=== PATIENT | male | born 1940 | race Caucasian/White ===

== ENCOUNTER → 2017-11-20 09:03 | Outpatient (CLI) | payer OTHER, SELFPAY ==
[2017-11-20 12:03] LABS: Alanine Aminotransferase 32 IU/L (21-72); Albumin 4.3 g/dL (3.5-5.0); Albumin Globulin Ratio 1.9 (1.0-2.8); Alkaline Phosphatase 34 U/L (38-126); Aspartate Aminotransferase 23 IU/L (17-59); BUN Creatinine Ratio 22.7 (6-22); Bilirubin Total 0.8 mg/dL (0.2-1.3); Cholesterol 117 mg/dL (140-199); Estimated Glomerular Filt Rate > 60.0 mL/min (>60); Globulin 2.3 g/dL (1.7-4.1); Glucose 89 mg/dL (80-110); HDL Cholesterol 52 mg/dL (40-60); HEMOLYSIS < 15 (0-50); LDL Cholesterol Calculated 47 mg/dL (<100); Potassium 4.4 mmol/L (3.4-5.1); Sodium 138 mmol/L (137-145); Total Protein 6.6 g/dL (6.3-8.2); Triglycerides 88 mg/dL (35-150)
== END ==
PROVIDERS: PCP Family Medicine; Visit Provider Internal Medicine Cardiovascular Disease
DX: I25.5 Ischemic cardiomyopathy (principal); I49.3 Ventricular premature depolarization
CPT/HCPCS: 36415; 80053; 80061

== ENCOUNTER → 2018-07-23 09:58 | Outpatient (CLI) | payer OTHER, SELFPAY ==
[2018-07-23 11:08] LABS: Blood Urea Nitrogen 16 mg/dL (9-20); Carbon Dioxide 27 mmol/L (22-32); Chloride 96 mmol/L (98-107); Glucose 91 mg/dL (80-110); HEMOLYSIS < 15 (0-50); Potassium 4.4 mmol/L (3.4-5.1); Sodium 134 mmol/L (137-145)
[2018-07-23 11:33] LABS: Estimated Glomerular Filt Rate > 60.0 mL/min (>60)
== END ==
PROVIDERS: PCP Family Medicine; Visit Provider Internal Medicine Cardiovascular Disease
DX: I25.5 Ischemic cardiomyopathy (principal); I49.3 Ventricular premature depolarization
CPT/HCPCS: 36415; 80048

== ENCOUNTER 2018-07-23 17:17 | Emergency (ER) | payer OTHER, SELFPAY ==
[2018-07-23 17:25] VITALS: BP 143/81; PULSE 76; RESP 20; TEMP 35.9; O2SAT 97; BMI 23.6
[2018-07-23 18:30] VITALS: BP 129/72; PULSE 69; RESP 15; O2SAT 100
--- NOTE | 2018-07-23 18:32 | PC.NURSE ---
Pt c/o dizziness for 3 days that also accompanied sinus congestion. Pt had a scheduled appointment with pcp today but it was cancelled due to pcp's illness. Pcp's office told pt to go to the ED.
[2018-07-23 19:00] VITALS: BP 114/60; PULSE 71; O2SAT 100
[2018-07-23 19:22] LABS: Add Manual Diff / Slide Review NO; Basophils Percent Auto 0.9 % (0-2); Eosinophils Percent Auto 2.4 % (2-4); Hematocrit 37.7 % (41-53); Hemoglobin 12.7 g/dL (13.5-17.5); Mean Corpuscular HGB Conc 33.8 % (30-36); Mean Corpuscular Hemoglobin 31.9 PG (26-34); Mean Corpuscular Volume 94.5 fL (80-100); Monocytes Percent Auto 12.8 % (3-14); Neutrophils Absolute Auto 5400 /uL (1500-7000); Neutrophils Percent Auto 59.9 % (50-75); Platelet Count 136 X10^3/uL (150-400); Red Blood Cell Count 3.99 X10^6/uL (4.5-5.9); Red Cell Distribution Width 12.7 % (11.6-14.8); White Blood Cell Count 8.9 X10^3/uL (4.5-11.0)
[2018-07-23 19:35] LABS: BUN Creatinine Ratio 20.9 (6-22); Blood Urea Nitrogen 23 mg/dL (9-20); Calcium 8.7 mg/dL (8.4-10.2); Carbon Dioxide 23 mmol/L (22-32); Chloride 97 mmol/L (98-107); Estimated Glomerular Filt Rate > 60.0 mL/min (>60); Glucose 93 mg/dL (80-110); HEMOLYSIS 16 (0-50); Sodium 133 mmol/L (137-145)
[2018-07-23 19:48] LABS: Troponin I < 0.012 ng/mL (0.01-0.034)
[2018-07-23] MEDS: SODIUM CHLORIDE 0.9% 1,000 ML 1000 ML IV (21:16)
[2018-07-23 22:08] VITALS: BP 135/71; PULSE 68; RESP 18; O2SAT 100
[2018-07-23 22:09] VITALS: BP 126/64; BP 129/74; BP 131/68; PULSE 69; PULSE 73; PULSE 80
--- NOTE | 2018-07-24 01:40 | ED_ITS ---
HPI - Dizziness General Chief Complaint: Dizziness Stated Complaint: DIZZY, CHF, SINUS ISSUES Time Seen by Provider: 07/23/18 18:21 Source: patient and family Mode of arrival: ambulatory Limitations: no limitations History of Present Illness HPI Narrative: 77-year-old male, nonsmoker with history of hypertension presents with his and a chief complaint of dizziness over the past day or so. He attempted to see his primary care provider whom was out sick today and his nursing staff sent the patient here for evaluation. He denies any new medications or change in diet. He denies any nausea, vomiting or diarrhea. He states his dizziness is worse upon standing and improves with rest. He denies chest pain or shortness of breath. He does have a history of 2 coronary stents and wants to be sure this is not a cardiac problem MD complaint: dizziness and lightheadedness Onset (ago): hour(s) Timing: gradual onset Description: lightheadedness History of similar episodes: No History of trauma: No Severity: mild Relieving factors: remaining still Exacerbating factors: movement and position Associated symptoms: denies other symptoms Related Data Home Medications Medication Instructions Recorded Confirmed ASPIRIN (Aspirin EC) 81 mg PO Q DAY #0 12/11/10 Previous Rx's Medication Instructions Recorded lisinopril 5 mg PO QDAY #90 tab 07/02/16 spironolactone [Aldactone] 12.5 mg PO QDAY #45 tab 08/09/16 simvastatin [Zocor] 20 mg PO HS #90 tab 12/16/16 carvedilol 6.25 mg tablet 6.25 mg PO BID #12 tab 05/21/18 fluoxetine 20 mg PO QDAY #90 tab 07/15/18 Allergies Allergy/AdvReac Type Severity Reaction Status Date / Time No Known Drug Allergies Allergy Verified 07/23/18 17:29 Review of Systems Constitutional Denies chills, Denies fever(s), Denies lethargy and Denies weakness Eyes Denies change in vision, Denies eye discharge, Denies irritation and Denies loss of vision ENT Ears, Nose, Mouth, and Throat: Denies change in voice, Reports vertigo, Reports dizziness, Denies neck pain and Denies sore throat Cardiovascular Denies chest pain, Denies irregular heart rhythm, Denies lightheadedness, Denies palpitations, Denies dyspnea, Denies dyspnea on exertion and Denies orthopnea Respiratory Denies cough, Denies dyspnea, Denies dyspnea on exertion and Denies wheezing Gastrointestinal Gastrointestinal: Denies abdominal pain, Denies change in bowel habits, Denies diarrhea, Denies nausea and Denies vomiting Genitourinary Denies hematuria, Denies flank pain, Denies urinary incontinence and Denies urinary urgency Musculoskeletal Denies neck pain Integumentary/Breasts Denies pruritus, Denies erythema, Denies rash and Denies wounds Neurologic Denies confusion, Reports vertigo, Reports dizziness, Denies loss of vision and Denies weakness Psychiatric Denies anxiety, Denies confusion, Denies depression, Denies homicidal ideation and Denies suicidal ideation Endocrine Denies palpitations Hematologic/Lymphatic Denies easy bruising Allergic/Immunologic Denies wheezing [facility] Surgical History History of cataract removal with insertion of prosthetic lens (02/20/16) History of cataract removal with insertion of prosthetic lens (03/05/16) History of knee replacement History of tonsillectomy Status post arthroscopy Exam Narrative Exam Narrative: GENERAL: This is a well-nourished, well-developed patient, in mild distress. HEAD: Atraumatic. Normocephalic. No temporal or scalp tenderness. EYES: Pupils equal round and reactive. Extraocular motions intact. No scleral icterus. No injection or drainage. ENT: Dry membraines. Nose without bleeding, purulent drainage or septal hematoma. Throat without erythema, tonsillar hypertrophy or exudate. Uvula midline. Airway patent. NECK: Trachea midline. No JVD or lymphadenopathy. Supple, nontender, no meningeal signs. CARDIOVASCULAR: Regular rate and rhythm without murmurs, gallops, or rubs. RESPIRATORY: Clear to auscultation. Breath sounds equal bilaterally. No wheezes , rales, or rhonchi. GASTROINTESTINAL: Abdomen soft, non-tender, nondistended. No hepato-splenomegaly , or palpable masses. No guarding. EXTREMITIES: No clubbing, cyanosis, or edema. No joint tenderness, effusion, or edema noted. BACK: Nontender without deformity or crepitance. No flank tenderness. NEURO: AOx3. SKIN: No rash or erythema. Initial Vital Signs Initial Vital Signs: Vital Signs Temperature 96.7 F L 07/23/18 17:25 Pulse Rate 76 07/23/18 17:25 Respiratory Rate 20 07/23/18 17:25 Blood Pressure 143/81 H 07/23/18 17:25 Pulse Oximetry 97 07/23/18 17:25 Course Orders Ordered: ED Orders 07/23/18 19:15 Basic Metabolic Panel Stat Complete Blood Count AUTO DIFF Stat Troponin I Stat Discontinued Medications Sodium Chloride (Normal Saline 0.9%) 1,000 mls @ 1,000 mls/hr IV BOLUS ONE Stop: 07/23/18 22:04 Last Infusion: 07/23/18 22:17 Dose: 0 mls/hr Admin: 07/23/18 21:16 Dose: 1,000 mls/hr Vital Signs - 8 hr 07/23/18 18:30 07/23/18 19:00 07/23/18 22:08 Pulse Rate 69 71 68 Pulse Rate [Orthostatic Lying] Pulse Rate [Orthostatic Sitting] Pulse Rate [Orthostatic Standing] Respiratory Rate 15 18 Blood Pressure [Orthostatic Lying] Blood Pressure [Orthostatic Sitting] Blood Pressure [Orthostatic Standing] Blood Pressure [Right Arm] 129/72 114/60 135/71 Pulse Oximetry 100 100 100 07/23/18 22:09 Pulse Rate Pulse Rate [Orthostatic Lying] 69 Pulse Rate [Orthostatic Sitting] 80 Pulse Rate [Orthostatic Standing] 73 Respiratory Rate Blood Pressure [Orthostatic Lying] 131/68 Blood Pressure [Orthostatic Sitting] 129/74 Blood Pressure [Orthostatic Standing] 126/64 Blood Pressure [Right Arm] Pulse Oximetry MDM - Dizziness Lab Data Result diagrams: 07/23/18 19:15 07/23/18 19:15 Lab Results 07/23/18 07/23/18 Range/Units 19:15 19:15 WBC 8.9 (4.5-11.0) X10^3/uL RBC 3.99 L (4.5-5.9) X10^6/uL Hgb 12.7 L (13.5-17.5) g/dL Hct 37.7 L (41-53) % MCV 94.5 (80-100) fL MCH 31.9 (26-34) PG MCHC 33.8 (30-36) % RDW 12.7 (11.6-14.8) % Plt Count 136 L (150-400) X10^3/uL Neut % (Auto) 59.9 (50-75) % Lymph % (Auto) 24.0 L (25-40) % [place] % (Auto) 12.8 (3-14) % Eos % (Auto) 2.4 (2-4) % Baso % (Auto) 0.9 (0-2) % Neut # (Auto) 5400 (8229-1849) /uL Sodium 133 L (137-145) mmol/L Potassium 4.0 (3.4-5.1) mmol/L Chloride 97 L (98-107) mmol/L Carbon Dioxide 23 (22-32) mmol/L BUN 23 H (9-20) mg/dL Creatinine 1.10 (0.66-1.25) mg/dL Estimated GFR > 60.0 (>60) mL/min BUN/Creatinine Ratio 20.9 (6-22) Glucose 93 (80-110) mg/dL Calcium 8.7 (8.4-10.2) mg/dL Troponin I < 0.012 (0.01-0.034) ng/mL Discharge Plan Departure Patient Disposition: Home Clinical Impression: Acute dehydration, Dizziness Discharge Date/Time: 07/23/18 22:37 Interventions: ED Discharge Assessment Last Done: 07/23/18 22:37 Instructions: DI for Dehydration -- Adult Activity Restrictions/Additional Instructions: 1. Drink plenty of fluids with frequent small sips. 2. For the next 24 hours a clear liquid diet is advised. After that please employ a brat diet which would include bananas, rice, apples, toast. 3. Please take medications as directed. 4. Please follow-up with your doctor in the next 1-2 days. Call the office for an appointment. 5. Please return to the emergency Department for any worsening or persistent symptoms, such as increasing pain or fever. Prescriptions: No Action ASPIRIN (Aspirin EC) 81 mg PO Q DAY Qty: 0 RF: 0 lisinopril 5 MG tablet 5 mg PO QDAY Qty: 90 RF: 3 spironolactone [Aldactone] 25 MG tablet 12.5 mg PO QDAY Qty: 45 RF: 0 simvastatin [Zocor] 40 MG tablet 20 mg PO HS Qty: 90 RF: 3 carvedilol [Coreg] 6.25 mg tablet 6.25 mg PO BID Qty: 12 RF: 0 fluoxetine 20 mg tablet 20 mg PO QDAY Qty: 90 RF: 0 Referrals: Brandyn Conklin MD [Primary Care Provider] -
== END 2018-07-23 22:37 | disposition home or self-care (01) ==
PROVIDERS: Emergency Provider Emergency Medicine; Family Provider Family Medicine; PCP Family Medicine
DX: E86.0 Dehydration (principal); R42 Dizziness and giddiness
CPT/HCPCS: 36591; 80048; 84484; 85025; 93005; 96360; 99283; 99284

== ENCOUNTER → 2018-08-19 08:36 | Outpatient (CLI) | payer OTHER, SELFPAY ==
[2018-08-19 10:00] LABS: BUN Creatinine Ratio 23.6 (6-22); Blood Urea Nitrogen 26 mg/dL (9-20); Calcium 8.7 mg/dL (8.4-10.2); Carbon Dioxide 25 mmol/L (22-32); Chloride 97 mmol/L (98-107); Estimated Glomerular Filt Rate > 60.0 mL/min (>60); Glucose 91 mg/dL (80-110); HEMOLYSIS < 15 (0-50); Potassium 4.6 mmol/L (3.4-5.1); Sodium 132 mmol/L (137-145)
[2018-08-21 07:58] LABS: Osmolality, Serum 285 mosm/kg (260-310)
== END ==
PROVIDERS: Family Provider Family Medicine; PCP Family Medicine; Visit Provider Internal Medicine Cardiovascular Disease
DX: E87.1 Hypo-osmolality and hyponatremia (principal)
CPT/HCPCS: 36415; 80048; 83930

== ENCOUNTER → 2018-10-19 11:20 | Outpatient (CLI) | payer OTHER, SELFPAY ==
[2018-10-19 12:35] LABS: Blood Urea Nitrogen 22 mg/dL (9-20); Calcium 8.9 mg/dL (8.4-10.2); Carbon Dioxide 25 mmol/L (22-32); Chloride 100 mmol/L (98-107); Estimated Glomerular Filt Rate > 60.0 mL/min (>60); Glucose 93 mg/dL (80-110); HEMOLYSIS 124 (0-50); Potassium 4.8 mmol/L (3.4-5.1); Sodium 135 mmol/L (137-145)
== END ==
PROVIDERS: Family Provider Family Medicine; PCP Family Medicine; Visit Provider Internal Medicine Cardiovascular Disease
DX: I10 Essential (primary) hypertension (principal); E87.1 Hypo-osmolality and hyponatremia
CPT/HCPCS: 36415; 80048

== ENCOUNTER → 2019-07-23 13:09 | Outpatient (CLI) | payer MEDICARE, SELFPAY ==
--- NOTE | 2019-07-23 13:12 | DI.MRI.S_ITS ---
PROCEDURE: MR HEAD/BRAIN WO/W CON INDICATIONS: memory loss TECHNIQUE: Noncontrast axial T1 spin echo, axial T2 fast spin echo, sagittal and axial FLAIR, coronal T2 fast spin echo, axial gradient echo, axial diffusion and ADC through the brain. After the administration of contrast, axial and coronal T1 spin echo with fat saturation through the brain. COMPARISON: None. FINDINGS: Image quality: Excellent. CSF spaces: Basal cisterns are patent. No extra-axial fluid collections. Ventricles are normal in size and shape. Brain: No midline shift. No intracranial bleeds or masses. No abnormal intracranial enhancement. There is cerebral volume loss for age. There is periventricular white matter chronic small vessel ischemic change. The brainstem appears normal. Diffusion-weighted images demonstrate no acute ischemic insults. No chronic ischemic insults. Normal intravascular flow voids are present. Skull and face: Calvarial marrow is normal in signal. Orbits appear normal. Sinuses: Mild bilateral maxillary sinus mucosal thickening is present. Sinuses and mastoids otherwise appear clear. IMPRESSION: 1. Mild volume loss and minimal small vessel ischemic disease. 2. No acute process. No recent infarct. Dictated by: Sung Rice M.D. on 07/23/2019 at 14:18 Approved by: Sung Rice M.D. on 07/23/2019 at 14:20
== END ==
PROVIDERS: PCP Family Medicine; Visit Provider Family Medicine
DX: R41.3 Other amnesia (principal)
CPT/HCPCS: 70553; A9579

== ENCOUNTER → 2019-07-26 08:35 | Outpatient (CLI) | payer MEDICARE, SELFPAY ==
[2019-07-26 09:45] LABS: Add Manual Diff / Slide Review NO; Basophils Absolute Auto 100 /uL (0-100); Basophils Percent Auto 0.9 % (0-2); Eosinophils Absolute Auto 200 /uL (0-450); Eosinophils Percent Auto 2.9 % (2-4); Hematocrit 41.6 % (41-53); Lymphocytes Absolute Auto 1900 /uL (1100-4500); Lymphocytes Percent Auto 33.8 % (25-40); Mean Corpuscular HGB Conc 33.6 % (30-36); Mean Corpuscular Hemoglobin 32.2 PG (26-34); Mean Corpuscular Volume 96.1 fL (80-100); Monocytes Absolute Auto 600 /uL (0-900); Monocytes Percent Auto 10.3 % (3-14); Neutrophils Absolute Auto 2900 /uL (1500-7000); Neutrophils Percent Auto 52.1 % (50-75); Platelet Count 164 X10^3/uL (150-400); Red Blood Cell Count 4.33 X10^6/uL (4.5-5.9); Red Cell Distribution Width 12.8 % (11.6-14.8); White Blood Cell Count 5.6 X10^3/uL (4.5-11.0)
[2019-07-26 10:05] LABS: Alanine Aminotransferase 15 IU/L (<50); Albumin 4.4 g/dL (3.5-5.0); Albumin Globulin Ratio 1.7 (1.0-2.8); Alkaline Phosphatase 42 U/L (38-126); Aspartate Aminotransferase 26 IU/L (17-59); BUN Creatinine Ratio 20.9 (6-22); Bilirubin Total 0.6 mg/dL (0.2-1.3); Blood Urea Nitrogen 23 mg/dL (9-20); Carbon Dioxide 27 mmol/L (22-32); Chloride 101 mmol/L (98-107); Cholesterol 140 mg/dL (140-199); Estimated Glomerular Filt Rate > 60.0 mL/min (>60); Globulin 2.6 g/dL (1.7-4.1); Glucose 89 mg/dL (80-110); HDL Cholesterol 56 mg/dL (40-60); HEMOLYSIS < 15 (0-50); LDL Cholesterol Calculated 70 mg/dL (<100); Potassium 4.6 mmol/L (3.4-5.1); Sodium 136 mmol/L (137-145); Triglycerides 71 mg/dL (35-150)
[2019-07-26 10:36] LABS: TSH w/ Reflex to FT4 2.83 uIU/mL (0.47-4.68)
[2019-07-26 10:56] LABS: Vitamin B12 270 pg/mL (239-931)
== END ==
PROVIDERS: PCP Family Medicine; Visit Provider Family Medicine
DX: R41.3 Other amnesia (principal)
CPT/HCPCS: 36415; 80053; 80061; 82607; 84443; 85025

== ENCOUNTER → 2020-06-07 08:54 | Outpatient (CLI) | payer MEDICARE, SELFPAY ==
[2020-06-07 10:42] LABS: BUN Creatinine Ratio 20.4 (6-22); Blood Urea Nitrogen 23 mg/dL (9-20); Calcium 8.9 mg/dL (8.4-10.2); Carbon Dioxide 27 mmol/L (22-32); Chloride 100 mmol/L (98-107); Cholesterol 107 mg/dL (140-199); Estimated Glomerular Filt Rate > 60.0 mL/min (>60); Glucose 92 mg/dL (80-110); HDL Cholesterol 49 mg/dL (40-60); HEMOLYSIS < 15 (0-50); LDL Cholesterol Calculated 38 mg/dL (<100); Potassium 4.7 mmol/L (3.4-5.1); Sodium 133 mmol/L (137-145); Triglycerides 99 mg/dL (35-150)
== END ==
PROVIDERS: PCP Family Medicine; Referring Provider Internal Medicine Cardiovascular Disease; Visit Provider Internal Medicine Cardiovascular Disease
DX: I10 Essential (primary) hypertension (principal)
CPT/HCPCS: 36415; 80048; 80061

== ENCOUNTER → 2020-09-14 12:59 | Outpatient (CLI) | payer MEDICARE, SELFPAY ==
[2020-09-14 14:08] LABS: Add Manual Diff / Slide Review NO; Basophils Absolute Auto 0 /uL (0-100); Basophils Percent Auto 0.8 % (0-2); Eosinophils Absolute Auto 100 /uL (0-450); Eosinophils Percent Auto 1.3 % (2-4); Hematocrit 38.6 % (41-53); Hemoglobin 12.8 g/dL (13.5-17.5); Lymphocytes Absolute Auto 1400 /uL (1100-4500); Mean Corpuscular HGB Conc 33.2 % (30-36); Mean Corpuscular Volume 96.1 fL (80-100); Monocytes Absolute Auto 600 /uL (0-900); Monocytes Percent Auto 11.2 % (3-14); Neutrophils Absolute Auto 3600 /uL (1500-7000); Neutrophils Percent Auto 62.7 % (50-75); Platelet Count 151 X10^3/uL (150-400); Red Blood Cell Count 4.02 X10^6/uL (4.5-5.9); Red Cell Distribution Width 13.2 % (11.6-14.8); White Blood Cell Count 5.7 X10^3/uL (4.5-11.0)
[2020-09-14 14:30] LABS: Erythrocyte Sedimentation Rate 6 MM/HR (0-15)
[2020-09-14 14:34] LABS: Albumin 4.1 g/dL (3.5-5.0); Albumin Globulin Ratio 1.6 (1.0-2.8); Alkaline Phosphatase 418 U/L (38-126); Amylase 65 U/L (30-110); Aspartate Aminotransferase 711 IU/L (17-59); BUN Creatinine Ratio 18.2 (6-22); Bilirubin Conjugated 4.1 md/dL (0.0-0.3); Bilirubin Total 7.6 mg/dL (0.2-1.3); Bilirubin Unconjugated 1.7 mg/dL (0.0-1.1); Blood Urea Nitrogen 20 mg/dL (9-20); Calcium 8.8 mg/dL (8.4-10.2); Carbon Dioxide 24 mmol/L (22-32); Chloride 98 mmol/L (98-107); Estimated Glomerular Filt Rate > 60.0 mL/min (>60); Globulin 2.5 g/dL (1.7-4.1); Glucose 118 mg/dL (80-110); Lipase 599 U/L (23-300); Potassium 5.1 mmol/L (3.4-5.1); Sodium 129 mmol/L (137-145); Total Protein 6.6 g/dL (6.3-8.2)
[2020-09-14 14:40] LABS: Alanine Aminotransferase 840 IU/L (<50); C-Reactive Protein Quant < 0.5 mg/dL (<1.0); HEMOLYSIS 62 (0-50)
[2020-09-14 14:57] LABS: Appearance Urine UA CLOUDY; Bilirubin Urine UA 3+ (NEGATIVE); Color Urine UA ORANGE; Glucose Urine UA TRACE g/dL (Negative); Ketones Urine UA NEGATIVE (NEGATIVE); Leukocyte Esterase Urine UA 3+ (NEGATIVE); Nitrite Urine UA NEGATIVE (Negative); Occult Blood Urine UA 3+ (Negative); Protein Urine UA 1+ (Negative); Specific Gravity Urine UA 1.015 (1.000-1.035)
[2020-09-14 15:03] LABS: Bacteria Urine None Seen
[2020-09-14 15:05] LABS: Culture Indicated Urine Specimen Cultured; RBC Urine 10-30/HPF (0-5/HPF); WBC Urine 10-30/HPF (0-5/HPF)
[2020-09-14 15:07] LABS: Ictotest Urine Positive (Negative)
== END ==
PROVIDERS: PCP Family Medicine; Referring Provider Family Medicine; Visit Provider Family Medicine
DX: R17 Unspecified jaundice (principal); R53.83 Other fatigue
CPT/HCPCS: 36415; 80048; 80076; 81003; 81015; 82150; 83690; 85025; 85651; 86140; 87077; 87086; 87186

== ENCOUNTER → 2020-09-15 11:34 | Outpatient (CLI) | payer MEDICARE, SELFPAY ==
--- NOTE | 2020-09-15 12:30 | DI.CT.S_ITS ---
PROCEDURE: CT ABDOMEN PELVIS W CON INDICATIONS: Elevated LFT's TECHNIQUE: After the administration of oral and intravenous contrast, 5 mm thick sections acquired from the diaphragms to the symphysis. 5 mm thick coronal and sagittal reformats were performed. For radiation dose reduction, the following was used: automated exposure control, adjustment of mA and/or kV according to patient size. COMPARISON: [facility], CT, CT-IVP, 06/05/2010, 8:41. FINDINGS: Image quality: Excellent. ABDOMEN: Lung bases: Mild bibasilar scarring/atelectasis is seen. Heart size is normal. Solid organs: Liver is normal in size . No discrete hepatic lesion is noted. Gallbladder is markedly distended. No calcified gallstone is seen. There is mild to moderate intrahepatic biliary ductal dilatation. Marked dilatation of common bile duct is seen measures up to 1.3 cm in diameter distally. No calcified common bile duct stone is seen. Pancreatic duct is normal in size. Pancreas enhances normally. No definite pancreatic head mass is identified. Spleen is normal in size and enhancement. No adrenal nodules. Kidneys are normal in size and enhancement, without hydronephrosis. 2.4 cm exophytic cyst in posterior cortex of midpole right kidney is seen. Peritoneum and bowel: Stomach, small bowel, and colon loops are normal in caliber and wall thickness. No free fluid or air. There is a small hiatal hernia. Mild fecal stasis throughout the colon is seen. Sigmoid diverticulosis is seen, no CT evidence of acute diverticulitis. No abscess collection. Nodes and vessels: No retroperitoneal or mesenteric adenopathy. Aorta and inferior vena cava are normal in caliber. Miscellaneous: No ventral hernias. PELVIS: Genitourinary: There is diffuse bladder wall thickening, no definite discrete bladder wall mass is seen. Miscellaneous: No inguinal hernias or adenopathy. Bones: No suspicious bony lesions. No vertebral body compression fractures. Degenerative endplate changes throughout lower thoracic and lumbar spine is seen. IMPRESSION: 1. [id number] intrahepatic biliary ductal dilatation and marked dilatation of distal common bile duct measures up to 1.3 cm in diameter. Markedly distended gallbladder. No calcified gallstone or common bile duct stone is seen. ERCP or MRCP can be done for further evaluation of this area. 2. Pancreatic duct is normal in size. No discrete pancreatic lesion is identified. 3. Right renal cyst as above. No obstructing renal stone or hydronephrosis. Diffuse bladder wall thickening, no discrete bladder wall mass, and may represent cystitis versus chronic outlet obstruction. 4. No bowel obstruction. No abnormal bowel wall thickening. No free fluid or free air. Sigmoid diverticulosis without evidence of acute diverticulitis. 5. Bibasilar dependent atelectasis/scarring. Dictated by: Primo Coburn M.D. on 09/15/2020 at 13:17 Approved by: Primo Coburn M.D. on 09/15/2020 at 13:25
== END ==
PROVIDERS: PCP Family Medicine; Referring Provider Family Medicine; Visit Provider Family Medicine
DX: R79.89 Other specified abnormal findings of blood chemistry (principal); K83.8 Other specified diseases of biliary tract; K57.30 Diverticulosis of large intestine without perforation or abscess without bleeding; N28.1 Cyst of kidney, acquired
CPT/HCPCS: 74177; Q9967

== ENCOUNTER 2020-09-21 07:34 | Emergency (ER) | payer MEDICARE, SELFPAY ==
[2020-09-21] VITALS (9 sets, daily range): BP systolic 141–159; BP diastolic 68–72; PULSE 55–62; RESP 15–21; TEMP 36; O2SAT 98–100; BMI 22.9
--- NOTE | 2020-09-21 07:59 | ED_ITS ---
HPI - Male Genitourinary General Chief complaint: Urogenital-Male Stated complaint: procedure on friday, complications Time Seen by Provider: 09/21/20 07:41 Source: patient Mode of arrival: Ambulatory Limitations: no limitations History of Present Illness HPI Narrative: 79-year-old male former smoker with history of coronary artery disease, hypertension, CHF, recent gallbladder procedure presents with his and multiple complaints. On Friday he was at an outside facility and had a procedure for what he refers to as a blocked common bile duct. He was discharged on Friday and had been doing well per his own admission. He received his COVID vaccination yesterday and went to bed in his normal state of health. He woke up and upon getting out of bed became lightheaded and then fell to the ground, likely passing out briefly. He denies any head neck or back pain and now feels largely at his baseline but his largest complaint is inability to urinate over this morning Related Data Home Medications Medication Instructions Recorded Confirmed ASPIRIN (Aspirin EC) 81 mg PO Q DAY #0 12/11/10 09/18/20 atorvastatin 40 mg tablet 40 mg PO DAILY 07/28/18 09/18/20 glucosamine sulfate 500 mg tablet 500 mg PO BID 07/28/18 09/18/20 spironolactone 25 mg tablet 12.5 mg PO DAILY tab 07/19/19 09/18/20 pantoprazole 40 mg tablet,delayed 40 mg PO BID tab 09/20/20 09/20/20 release Previous Rx's Medication Instructions Recorded fluoxetine 20 mg tablet 20 mg PO QDAY #90 tab 10/06/19 clopidogrel 75 mg tablet See Rx Instructions .ROUTE 05/01/20 .COMPLEX #90 tablet carvedilol 6.25 mg tablet 6.25 mg PO BID #60 tab 08/04/20 cephalexin 500 mg PO BID 5 Days #10 cap 09/21/20 Allergies Allergy/AdvReac Type Severity Reaction Status Date / Time No Known Drug Allergies Allergy Verified 09/21/20 07:47 Review of Systems Constitutional Constitutional: Denies chills, Denies fatigue, Denies fever(s), Denies frequent falls, Denies lethargy and Denies weakness Eyes Eyes: Denies change in vision, Denies eye discharge, Denies irritation and Denies loss of vision ENT Ears, Nose, Mouth, and Throat: Denies change in voice, Denies dizziness, Denies neck pain, Denies sore throat and Denies throat swelling Cardiovascular Cardiovascular: Denies chest pain, Reports syncope, Denies irregular heart rhythm, Denies lightheadedness, Denies palpitations, Denies dyspnea, Denies dyspnea on exertion and Denies orthopnea Respiratory Respiratory: Denies cough, Denies dyspnea, Denies dyspnea on exertion and Denies wheezing Gastrointestinal Gastrointestinal: Denies abdominal pain, Denies change in bowel habits, Denies diarrhea, Denies nausea and Denies vomiting Genitourinary Genitourinary: Reports hematuria and Reports difficulty urinating Genitourinary: Reports hematuria Musculoskeletal Musculoskeletal: Denies neck pain and Denies numbness Integumentary/Breasts Skin/Breast: Denies pruritus, Denies erythema, Denies rash and Denies wounds Neurologic Neurologic: Denies behavioral changes, Denies confusion, Denies dizziness, Reports syncope, Denies frequent falls, Denies loss of vision, Denies numbness and Denies weakness Psychiatric Psychiatric: Denies anxiety, Denies behavioral changes, Denies confusion, Denies depression, Denies homicidal ideation and Denies suicidal ideation Endocrine Endocrine: Denies fatigue, Denies flushing and Denies palpitations Hematologic/Lymphatic Hematologic/Lymphatic: Denies easy bruising Allergic/Immunologic Allergic/Immunologic: Denies urticaria, Denies throat swelling and Denies wheezing Patient History Surgical History History of cataract removal with insertion of prosthetic lens (02/20/16) History of cataract removal with insertion of prosthetic lens (03/05/16) History of knee replacement History of tonsillectomy Status post arthroscopy Stented coronary artery Social History marital status: number of children: 2 household members: spouse lives independently: Yes caregiver/support person: No housing: house pets and animals: Yes education level: college occupational status: previously employed current occupational exposures/hazards: No 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 Well-nourished, well-developed patient, in mild distress. Walked in his own power. GCS 15 HEAD: Atraumatic. Normocephalic. EYES: Pupils equal round and reactive. Extraocular motions intact. No scleral icterus. No injection or drainage. ENT: Nose without bleeding, purulent drainage. Throat without erythema, ton sillar hypertrophy or exudate. Airway patent. NECK: Trachea midline. Non tender CARDIOVASCULAR: Regular rate and rhythm without murmurs, gallops, or rubs. RESPIRATORY: Clear to auscultation. Breath sounds equal bilaterally. No wheezes, rales, or rhonchi. GASTROINTESTINAL: Abdomen soft, suprapubic tenderness, nondistended. EXTREMITIES: No edema or joint tenderness. BACK: Nontender without deformity or crepitance. No flank tenderness. NEURO: AOx3. SKIN: No rash or erythema of visible areas. Mild jaundice Initial Vital Signs Initial Vital Signs: Vital Signs Temperature 96.8 F L 09/21/20 07:43 Pulse Rate 62 09/21/20 07:43 Respiratory Rate 16 09/21/20 07:43 Blood Pressure 159/72 H 09/21/20 07:43 Pulse Oximetry 98 09/21/20 07:43 Course Course Course Narrative: Bedside bladder scan notes over 400 cc of urine. Holbrook catheter placed and patient experiences complete resolution of symptoms. Orders Ordered: Discontinued Medications Lidocaine HCl (Lidocaine 2% (Urojet) 5 Ml Gel) 5 ml TOP NOW ONE Stop: 09/21/20 08:26 Last Admin: 09/21/20 08:37 Dose: 5 ml [facility]ed [facility] Consult[facility] Consultation #1: Dr. Lee (GI at [facility]) called. We have reviewed labs, presentation, and ultrasound. All labs are significantly improved and patient is feeling quite well. Requests we DC him, remind him to stop his Plavix and will see at scheduled visit next week. Vital Signs Vital signs: Vital Signs - 8 hr 09/21/20 10:30 09/21/20 10:32 09/21/20 11:00 Pulse Rate 58 L 57 L 56 L Respiratory Rate 21 15 Blood Pressure 156/68 H 141/69 H Pulse Oximetry 100 100 100 MDM - Male Genitourinary Lab Data Result diagrams: 09/21/20 07:55 09/21/20 07:55 Labs: Lab Results 03/06/0309/21/20 09/21/20 Range/Units 07:55 07:55 07:55 WBC 6.8 (4.5-11.0) X10^3/uL RBC 3.87 L (4.5-5.9) X10^6/uL Hgb 12.2 L (13.5-17.5) g/dL Hct 36.8 L (41-53) % MCV 95.1 (80-100) fL MCH 31.6 (26-34) PG MCHC 33.2 (30-36) % RDW 13.4 (11.6-14.8) % Plt Count 121 L (150-400) X10^3/uL Neut % (Auto) 60.8 (50-75) % Lymph % (Auto) 24.2 L (25-40) % Bee % (Auto) 11.2 (3-14) % Eos % (Auto) 2.9 (2-4) % Baso % (Auto) 0.9 (0-2) % Neut # (Auto) 4100 (3384-8787) /uL Lymph # (Auto) 1600 (4472-3477) /uL Bee # (Auto) 800 (0-900) /uL Eos # (Auto) 200 (0-450) /uL Baso # (Auto) 100 (0-100) /uL PT 12.7 (10.1-12.7) SECONDS INR 1.1 (0.9-1.3) Sodium 131 L (137-145) mmol/L Potassium 4.2 (3.4-5.1) mmol/L Chloride 101 (98-107) mmol/L Carbon Dioxide 24 (22-32) mmol/L BUN 23 H (9-20) mg/dL Creatinine 1.12 (0.66-1.25) mg/dL Estimated GFR > 60.0 (>60) mL/min BUN/Creatinine Ratio 20.5 (6-22) Glucose 102 (80-110) mg/dL Lactate (0.7-2.1) mmol/L Calcium 8.9 (8.4-10.2) mg/dL Magnesium 1.8 (1.6-2.3) mg/dL Total Bilirubin 2.5 H (0.2-1.3) mg/dL AST 769 H (17-59) IU/L ALT 935 H (<50) IU/L Alkaline Phosphatase 466 H (38-126) U/L Total Creatine Kinase 198 H (55-170) U/L CK-MB (CK-2) 2.77 H (<2.37) ng/mL CK-MB (CK-2) Rel Index 1.4 L (1.5-5.0) % Troponin I < 0.012 (0.01-0.034) ng/mL NT-Pro-B Natriuret Pep 589 H (<450) pg/mL Total Protein 6.5 (6.3-8.2) g/dL Albumin 3.8 (3.5-5.0) g/dL Globulin 2.7 (1.7-4.1) g/dL Albumin/Globulin Ratio 1.4 (1.0-2.8) Lipase 1265 H D (23-300) U/L Urine Color Urine Appearance Urine pH (4.5-8.0) Ur Specific [place] (1.000-1.035) Urine Protein (Negative) Urine Glucose (UA) (Negative) g/dL Urine Ketones (NEGATIVE) Urine Occult Blood (Negative) Urine Nitrate (Negative) Urine Bilirubin (NEGATIVE) Urine Urobilinogen (0.2) E.U./dL Ur Leukocyte Esterase (NEGATIVE) Urine RBC (0-5/HPF) Urine WBC (0-5/HPF) Urine Bacteria (None) Ur Culture Indicated? 09/21/20 09/21/20 Range/Units 07:55 08:20 WBC (4.5-11.0) X10^3/uL RBC (4.5-5.9) X10^6/uL Hgb (13.5-17.5) g/dL Hct (41-53) % MCV (80-100) fL MCH (26-34) PG MCHC (30-36) % RDW (11.6-14.8) % Plt Count (150-400) X10^3/uL Neut % (Auto) (50-75) % Lymph % (Auto) (25-40) % Bee % (Auto) (3-14) % Eos % (Auto) (2-4) % Baso % (Auto) (0-2) % Neut # (Auto) (4902-5174) /uL Lymph # (Auto) (2859-8869) /uL Bee # (Auto) (0-900) /uL Eos # (Auto) (0-450) /uL Baso # (Auto) (0-100) /uL PT (10.1-12.7) SECONDS INR (0.9-1.3) Sodium (137-145) mmol/L Potassium (3.4-5.1) mmol/L Chloride (98-107) mmol/L Carbon Dioxide (22-32) mmol/L BUN (9-20) mg/dL Creatinine (0.66-1.25) mg/dL Estimated GFR (>60) mL/min BUN/Creatinine Ratio (6-22) Glucose (80-110) mg/dL Lactate 1.0 (0.7-2.1) mmol/L Calcium (8.4-10.2) mg/dL Magnesium (1.6-2.3) mg/dL Total Bilirubin (0.2-1.3) mg/dL AST (17-59) IU/L ALT (<50) IU/L Alkaline Phosphatase (38-126) U/L Total Creatine Kinase (55-170) U/L CK-MB (CK-2) (<2.37) ng/mL CK-MB (CK-2) Rel Index (1.5-5.0) % Troponin I (0.01-0.034) ng/mL NT-Pro-B Natriuret Pep (<450) pg/mL Total Protein (6.3-8.2) g/dL Albumin (3.5-5.0) g/dL Globulin (1.7-4.1) g/dL Albumin/Globulin Ratio (1.0-2.8) Lipase (23-300) U/L Urine Color Brown Urine Appearance Cloudy Urine pH 6.0 (4.5-8.0) Ur Specific [place] 1.015 (1.000-1.035) Urine Protein 2+ H (Negative) Urine Glucose (UA) Negative (Negative) g/dL Urine Ketones Negative (NEGATIVE) Urine Occult Blood 3+ H (Negative) Urine Nitrate Negative (Negative) Urine Bilirubin Negative (NEGATIVE) Urine Urobilinogen 0.2 (0.2) E.U./dL Ur Leukocyte Esterase 2+ H (NEGATIVE) Urine RBC >100/hpf H (0-5/HPF) Urine WBC >100/hpf H (0-5/HPF) Urine Bacteria Many (>30) H (None) Ur Culture Indicated? Specimen cultured Imaging Data US - abdomen: Radiologist's Impression: [address] [id number] ReportSigned Patient: Perry Beckwith WMR#: [id number]: 1940cct:[id number]/Sex: 79 / MDate of Service: 09/21/20Loc: EDAccession Number: [id number] Procedure: US abdomen limited Ordering Provider: Asaf Boss D.O. PROCEDURE: US ABDOMEN LIMITED INDICATIONS: JAUNDICE. RECENT ERCP FOR CBD STONE. TECHNIQUE: Real-time scanning was performed of the abdominal and retroperitoneal organs, with image documentation. COMPARISON: [facility], CT, CT ABDOMEN PELVIS W CON, 09/15/2020, 12:40. FINDINGS: Liver: Liver is normal in size and homogeneous in echotexture. Gallbladder: Gallbladder is mildly enlarged measuring 8.9 x 5.0 x 5.0 cm. Gallbladder wall thickness is normal and there is no pericholecystic fluid. Biliary ducts: Intrahepatic bile ducts do not appear significantly dilated. An internal biliary stent is present. Extrahepatic bile duct caliber measures 4 mm at the common hepatic duct and 9 mm at the common bile duct. Normal is 6-7 mm or less in diameter, or 10 mm or less post-cholecystectomy. Pancreas: Portions of the pancreatic head are within normal limits. The pancreatic body and tail are not well seen. Miscellaneous: No free right upper quadrant fluid. IMPRESSION: Status post biliary stent placement. Mild enlargement of the common bile duct to 9 mm. The gallbladder is also mildly distended. No biliary duct calculus is seen. If there is suspicion for a pancreatic mass, dedicated pancreas protocol MRI or CT may be obtained for further evaluation. Dictated by: Doug Cagle M.D. on 09/21/2020 at 9:22 Approved by: Doug Cagle M.D. on 09/21/2020 at 9:28 MDM Narrative Medical decision making narrative: Patient presents with inability to urinate and hematuria. He has complete resolution of symptoms after placement of a Holbrook catheter and is easily flushed to clear. 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 He does not have fever, pain, vomiting, jaundice is improved. I sure the opinion with his quarry extraction worker that he is finding well for discharge and can follow up next week as planned Discharge Plan Departure Patient Disposition: Home Clinical Impression: Acute urinary retention Hematuria Qualifiers: Hematuria type: gross Qualified Code(s): R31.0 - Gross hematuria Instructions: Blood in Urine, DI for Hematuria, DI for Urinary Retention in Men Activity Restrictions/Additional Instructions: *You have been diagnosed with [urinary retention and hematuria. Your other labs are moving in the right direction and are very reassuring.] *What to do: *Take medications as directed: Antibiotic was sent to [facility]. Don't forget to hold your Plavix as we discussed. *Follow up with your quarry extraction worker as planned next week. Also, I have given you contact information for Urology to follow up with regarding your urinary retention *Return to ER if you should have any new, worsening or concerning symptoms, fever greater than 101 F, abdominal pain, worsening jaundice, other bothersome symptoms Prescriptions: New cephalexin 500 mg capsule 500 mg PO BID 5 Days Qty: 10 RF: 0 No Action spironolactone 25 mg tablet 12.5 mg PO DAILY RF: 0 pantoprazole 40 mg tablet,delayed release (DR/EC) 40 mg PO BID RF: 0 ASPIRIN (Aspirin EC) 81 mg PO Q DAY Qty: 0 RF: 0 fluoxetine 20 mg tablet 20 mg PO QDAY Qty: 90 RF: 3 clopidogrel 75 mg tablet See Rx Instructions .ROUTE .COMPLEX Qty: 90 RF: 3 carvedilol 6.25 mg tablet 6.25 mg PO BID Qty: 60 RF: 6 atorvastatin 40 mg tablet 40 mg PO DAILY RF: 0 glucosamine sulfate [Glucosamine] 500 mg tablet 500 mg PO BID RF: 0 Referrals: Bob Lee MD [Physician] - Brandyn Conklin MD [Primary Care Provider] - Gordon Burleson MD [Physician] -
[2020-09-21 08:07] LABS: Add Manual Diff / Slide Review NO; Basophils Absolute Auto 100 /uL (0-100); Basophils Percent Auto 0.9 % (0-2); Eosinophils Absolute Auto 200 /uL (0-450); Eosinophils Percent Auto 2.9 % (2-4); Hematocrit 36.8 % (41-53); Hemoglobin 12.2 g/dL (13.5-17.5); Lymphocytes Absolute Auto 1600 /uL (1100-4500); Lymphocytes Percent Auto 24.2 % (25-40); Mean Corpuscular HGB Conc 33.2 % (30-36); Mean Corpuscular Hemoglobin 31.6 PG (26-34); Mean Corpuscular Volume 95.1 fL (80-100); Monocytes Absolute Auto 800 /uL (0-900); Monocytes Percent Auto 11.2 % (3-14); Neutrophils Absolute Auto 4100 /uL (1500-7000); Neutrophils Percent Auto 60.8 % (50-75); Platelet Count 121 X10^3/uL (150-400); Red Blood Cell Count 3.87 X10^6/uL (4.5-5.9); Red Cell Distribution Width 13.4 % (11.6-14.8); White Blood Cell Count 6.8 X10^3/uL (4.5-11.0)
[2020-09-21 08:12] LABS: INR 1.1 (0.9-1.3); Prothrombin Time 12.7 SECONDS (10.1-12.7)
[2020-09-21 08:16] LABS: Albumin 3.8 g/dL (3.5-5.0); Albumin Globulin Ratio 1.4 (1.0-2.8); Alkaline Phosphatase 466 U/L (38-126); BUN Creatinine Ratio 20.5 (6-22); Bilirubin Total 2.5 mg/dL (0.2-1.3); Blood Urea Nitrogen 23 mg/dL (9-20); Calcium 8.9 mg/dL (8.4-10.2); Carbon Dioxide 24 mmol/L (22-32); Chloride 101 mmol/L (98-107); Creatine Kinase 198 U/L (55-170); Estimated Glomerular Filt Rate > 60.0 mL/min (>60); Globulin 2.7 g/dL (1.7-4.1); Glucose 102 mg/dL (80-110); Lipase 1265 U/L (23-300); Magnesium 1.8 mg/dL (1.6-2.3); Potassium 4.2 mmol/L (3.4-5.1); Sodium 131 mmol/L (137-145); Total Protein 6.5 g/dL (6.3-8.2)
[2020-09-21 08:23] LABS: Aspartate Aminotransferase 769 IU/L (17-59)
[2020-09-21 08:25] LABS: Alanine Aminotransferase 935 IU/L (<50)
[2020-09-21 08:28] LABS: NT-proBNP (BNP-Adult 18+) 589 pg/mL (<450); Troponin I < 0.012 ng/mL (0.01-0.034)
[2020-09-21 08:32] LABS: CKMB % Relative Index 1.4 % (1.5-5.0); Creatine Kinase MB 2.77 ng/mL (<2.37)
[2020-09-21 08:33] LABS: HEMOLYSIS 56 (0-50)
[2020-09-21 08:35] LABS: Appearance Urine UA CLOUDY; Bilirubin Urine UA NEGATIVE (NEGATIVE); Color Urine UA BROWN; Glucose Urine UA NEGATIVE (Negative); Ketones Urine UA NEGATIVE (NEGATIVE); Leukocyte Esterase Urine UA 2+ (NEGATIVE); Nitrite Urine UA NEGATIVE (Negative); Occult Blood Urine UA 3+ (Negative); Protein Urine UA 2+ (Negative); Specific Gravity Urine UA 1.015 (1.000-1.035); Urobilinogen Urine UA 0.2 E.U./dL (0.2)
[2020-09-21] MEDS: LIDOCAINE 2% (UROJET) 5 ML GEL TOP (08:37)
--- NOTE | 2020-09-21 08:40 | DI.US.S_ITS ---
PROCEDURE: US ABDOMEN LIMITED INDICATIONS: JAUNDICE. RECENT ERCP FOR CBD STONE. TECHNIQUE: Real-time scanning was performed of the abdominal and retroperitoneal organs, with image documentation. COMPARISON: [facility], CT, CT ABDOMEN PELVIS W CON, 09/15/2020, 12:40. FINDINGS: Liver: Liver is normal in size and homogeneous in echotexture. Gallbladder: Gallbladder is mildly enlarged measuring 8.9 x 5.0 x 5.0 cm. Gallbladder wall thickness is normal and there is no pericholecystic fluid. Biliary ducts: Intrahepatic bile ducts do not appear significantly dilated. An internal biliary stent is present. Extrahepatic bile duct caliber measures 4 mm at the common hepatic duct and 9 mm at the common bile duct. Normal is 6-7 mm or less in diameter, or 10 mm or less post-cholecystectomy. Pancreas: Portions of the pancreatic head are within normal limits. The pancreatic body and tail are not well seen. Miscellaneous: No free right upper quadrant fluid. IMPRESSION: Status post biliary stent placement. Mild enlargement of the common bile duct to 9 mm. The gallbladder is also mildly distended. No biliary duct calculus is seen. If there is suspicion for a pancreatic mass, dedicated pancreas protocol MRI or CT may be obtained for further evaluation. Dictated by: Doug Cagle M.D. on 09/21/2020 at 9:22 Approved by: Doug Cagle M.D. on 09/21/2020 at 9:28
[2020-09-21 08:44] LABS: Bacteria Urine Many (>30); Culture Indicated Urine Specimen Cultured; RBC Urine >100/HPF (0-5/HPF); WBC Urine >100/HPF (0-5/HPF)
--- NOTE | 2020-09-21 08:53 | PC.NURSE ---
Continuous 3 way bladder irrigation started at this time.
--- NOTE | 2020-09-21 11:13 | PC.NURSE ---
After continuous bladder irrigation, patient has no retention and urine is still brown in color, but much clearer than earlier.
--- NOTE | 2020-09-21 11:39 | PC.NURSE ---
Leg bag applied and teaching given on switching between leg bag and large urinary catheter bag. Patient given supplies and verbalizes understanding on clean practice.
== END 2020-09-21 11:40 | disposition home or self-care (01) ==
PROVIDERS: Emergency Provider Emergency Medicine; PCP Family Medicine
DX: R33.8 Other retention of urine (principal); R31.9 Hematuria, unspecified; R42 Dizziness and giddiness; R07.9 Chest pain, unspecified
CPT/HCPCS: 36415; 51701; 51798; 76705; 80053; 81001; 82550; 82553; 83605; 83690; 83735; 83880; 84484; 85025; 85610; 87040; 87077; 87086; 87186; 93005; 99284

== ENCOUNTER → 2020-09-25 09:59 | Outpatient (CLI) | payer MEDICARE, SELFPAY ==
[2020-09-25 12:15] LABS: COVID19 -Nasal RAPID Negative (Negative)
== END ==
PROVIDERS: PCP Family Medicine; Visit Provider Physician Assistant
DX: Z20.822 Contact with and (suspected) exposure to COVID-19 (principal)
CPT/HCPCS: 87635

== ENCOUNTER → 2020-10-16 11:53 | Outpatient (CLI) | payer MEDICARE, SELFPAY ==
[2020-10-16 13:03] LABS: COVID19 -Nasal RAPID Negative (Negative)
== END ==
PROVIDERS: PCP Family Medicine; Visit Provider Physician Assistant
DX: Z01.812 Encounter for preprocedural laboratory examination (principal); Z20.822 Contact with and (suspected) exposure to COVID-19
CPT/HCPCS: 87635; C9803

== ENCOUNTER 2020-10-25 03:01 | Inpatient (IN) | payer MEDICARE, SELFPAY ==
[2020-10-25] VITALS (24 sets, daily range): BP systolic 76–162; BP diastolic 49–86; PULSE 52–110; RESP 11–26; TEMP 36.3–36.9; O2SAT 94–99; BMI 21.7; BMI 21.6
--- NOTE | 2020-10-25 03:02 | ED.GENADULT ---
HPI - General Adult General Chief complaint: Weakness Stated complaint: Fall Time Seen by Provider: 10/25/20 03:02 Source: patient, family and EMS Mode of arrival: EMS Limitations: no limitations History of Present Illness HPI narrative: Patient is a 79-year-old male who arrived by EMS for evaluation of weakness. 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 He is scheduled to start chemotherapy sometime in the next week but has not done so up to this point. This was diagnosed after finding that he had elevated bilirubin. He is being followed by [facility] for this. He is currently on antibiotics after he had a biliary stent replaced within the past 14 days. He states that 2 days ago he was at his normal state health. He states he was feeling relatively well. He yesterday he started to feel very fatigued. Overnight he tried to get out of bed to go to the bathroom but was very weak. Initially reported that he fell however the patient states that he did not fall but he slumped to the ground. He states he did not hit his head. He had trouble getting up. Family had to help him get back into bed. When he continued to be weak EMS was called. When they arrived to the stated that his systolic blood pressure was in the 80s. He was alert oriented x3. He received approximately 500 cc of fluid prior to arrival. Other than being weak patient has no other complaints. Related Data Home Medications Medication Instructions Recorded Confirmed ASPIRIN (Aspirin EC) 81 mg PO Q DAY #0 12/11/10 10/25/20 atorvastatin 40 mg tablet 40 mg PO DAILY 07/28/18 10/25/20 spironolactone 25 mg tablet 12.5 mg PO DAILY tab 07/19/19 10/25/20 pantoprazole 40 mg tablet,delayed 40 mg PO BID tab 09/20/20 10/25/20 release lisinopril 5 mg PO 10/25/20 Previous Rx's Medication Instructions Recorded clopidogrel 75 mg tablet See Rx Instructions .ROUTE 05/01/20 .COMPLEX #90 tablet carvedilol 6.25 mg tablet 6.25 mg PO BID #60 tab 08/04/20 fluoxetine 20 mg tablet 20 mg PO QDAY #90 tab 10/09/20 Allergies Allergy/AdvReac Type Severity Reaction Status Date / Time No Known Drug Allergies Allergy Verified 09/25/20 11:15 Review of Systems Constitutional Constitutional: Denies body ache(s), Denies chills, Reports fatigue, Denies fever(s), Denies headache(s), Reports lethargy, Reports malaise, Reports poor appetite and Reports weakness Eyes Eyes: Denies change in vision ENT Ears, Nose, Mouth, and Throat: Denies vertigo, Denies dizziness, Denies headache(s) and Denies sore throat Cardiovascular Cardiovascular: Denies chest pain and Denies dyspnea Respiratory Respiratory: Denies cough and Denies dyspnea Gastrointestinal Gastrointestinal: Denies abdominal pain, Denies melena, Denies hematochezia, Denies change in bowel habits, Denies nausea and Denies vomiting Genitourinary Genitourinary: Denies dysuria Genitourinary: Denies dysuria Musculoskeletal Musculoskeletal: Denies arthralgias, Denies arthralgias and Denies myalgias Integumentary/Breasts Skin/Breast: Denies lesions and Denies rash Neurologic Neurologic: Denies abnormal speech, Denies behavioral changes, Denies vertigo, Denies dizziness, Denies headache(s), Denies localized weakness and Reports weakness Psychiatric Psychiatric: Denies behavioral changes Endocrine Endocrine: Reports fatigue Hematologic/Lymphatic On Anticoagulants: Yes (Plavix) Allergic/Immunologic Allergic/Immunologic: Denies urticaria Patient History Medical History Congestive heart failure (12/01/14) Coronary artery disease (12/01/14) Essential hypertension (12/11/10) Status post coronary angioplasty (12/01/14) Vitamin B12 deficiency Surgical History History of cataract removal with insertion of prosthetic lens (02/20/16) History of cataract removal with insertion of prosthetic lens (03/05/16) History of knee replacement History of tonsillectomy Status post arthroscopy Stented coronary artery Social History marital status: number of children: 2 household members: spouse lives independently: Yes caregiver/support person: No housing: house pets and animals: Yes education level: college occupational status: previously employed current occupational exposures/hazards: No 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 leisure activities: sports and exercise Smoking Status: Former smoker alcohol intake: current (2 + A DAY ) substance use type: marijuana Smoking Status: Former smoker Substance Use Type: does not use Exam Initial Vital Signs Initial Vital Signs: Vital Signs Temperature 98.5 F 10/25/20 03:06 Pulse Rate 110 H 10/25/20 03:06 Respiratory Rate 20 10/25/20 03:06 Blood Pressure 162/86 H 10/25/20 03:06 Pulse Oximetry 97 10/25/20 03:06 Const General: cooperative, comfortable, No in distress and frail appearing Limitations: altered mental status HENMT Head: normal to inspection and normocephalic Eyes General: appearance normal, both eyes and all related structures Chest Chest: No crepitus and No tenderness Resp Effort & Inspection: normal respiratory effort Auscultation: clear to auscultation bilaterally Cardio Rate: tachycardic Rhythm: regular rhythm Pulses: radial pulses present GI Inspection: non-distended Palpation: soft and No tender General: bladder normal to palpation Skin General: cool/cold Lesions: no lesions Rashes: no rashes Neuro General: patient alert, patient awake and patient oriented x3 Cranial Nerves: CN's II-XI intact bilaterally Cognition: normal cognition Speech: speech normal Sensory Exam: no sensory deficits noted Extrem General: capillary refill normal and No edema Psych Appearance: grossly normal and well kempt Scores GCS Daphne coma scale eye opening: Spontaneous Daphne coma scale verbal response: Orientated Daphne coma scale motor response: Obey commands Favio coma scale total score: 15 Course Orders Ordered: ED Orders 10/25/20 03:06 EKG-12 Lead Stat 10/25/20 03:20 Ammonia (NH3) Stat Basic Metabolic Panel Stat Complete Blood Count AUTO DIFF Stat Hepatic (Liver) Panel Stat Lipase Stat Troponin & CK Cardiac Panel Stat 10/25/20 03:53 XR chest 1V Stat 10/25/20 04:51 Consult to Physician Stat 10/25/20 04:55 COVID19 - ADMIT ([employer] swab/PCR) Stat Sodium Chloride (Normal Saline 0.9%) 1,000 mls @ 125 mls/hr IV CONT KATIE Last Infusion: 10/25/20 05:17 Dose: Infused Documented by: Sodium Chloride (Normal Saline 0.9%) 1,000 mls @ 1,000 mls/hr IV BOLUS ONE Stop: 10/25/20 06:59 Last Admin: 10/25/20 06:01 Dose: 1,000 mls/hr Documented by: Sodium Chloride (Normal Saline 0.9%) 1,000 mls @ 500 mls/hr IV BOLUS ONE Stop: 10/25/20 08:18 Ondansetron HCl (Ondansetron 4 Mg/2 Ml Inj) 4 mg IV Q4HR PRN PRN Reason: Nausea And Vomiting Discontinued Medications Aspirin (Aspirin 81 Mg Chew Tab) 324 mg PO NOW ONE Stop: 10/25/20 04:53 Last Admin: 10/25/20 04:56 Dose: 324 mg Documented by: Ceftriaxone Sodium/Dextrose (Rocephin) 1 gm in 50 mls @ 100 mls/hr IV NOW ONE Stop: 10/25/20 05:06 Last Infusion: 10/25/20 05:17 Dose: Infused Documented by: Vital Signs Vital signs: Vital Signs - 8 hr 10/25/20 03:06 10/25/20 03:30 10/25/20 04:00 Temperature 98.5 F Pulse Rate 106 H 104 H 97 H Respiratory Rate 16 18 18 Blood Pressure 162/86 H Pulse Oximetry 98 95 10/25/20 04:22 10/25/20 04:30 Temperature Pulse Rate 104 H 102 H Respiratory Rate 20 17 Blood Pressure 91/53 L 96/55 L Pulse Oximetry 99 98 Medical Decision Making Medical Records Medical records reviewed: Yes I reviewed the patient's medical records. Lab Data Lab results reviewed: Yes I reviewed the patient's lab results. Result diagrams: 10/25/20 03:20 10/25/20 03:20 Labs: Lab Results 10/25/20 10/25/20 10/25/20 Range/Units 03:20 03:20 03:20 WBC 15.5 H (4.5-11.0) X10^3/uL RBC 3.81 L (4.5-5.9) X10^6/uL Hgb 11.7 L (13.5-17.5) g/dL Hct 35.2 L (41-53) % MCV 92.4 (80-100) fL MCH 30.6 (26-34) PG MCHC 33.2 (30-36) % RDW 12.7 (11.6-14.8) % Plt Count 161 (150-400) X10^3/uL Neut % (Auto) 87.1 H (50-75) % Lymph % (Auto) 5.6 L (25-40) % [place] % (Auto) 6.3 (3-14) % Eos % (Auto) 0.2 L (2-4) % Baso % (Auto) 0.8 (0-2) % Neut # (Auto) 57462 H (9200-2088) /uL Lymph # (Auto) 900 L (8079-3739) /uL [place] # (Auto) 1000 H (0-900) /uL Eos # (Auto) 0 (0-450) /uL Baso # (Auto) 100 (0-100) /uL Sodium 132 L (137-145) mmol/L Potassium 3.5 (3.4-5.1) mmol/L Chloride 100 (98-107) mmol/L Carbon Dioxide 23 (22-32) mmol/L BUN 22 H (9-20) mg/dL Creatinine 1.09 (0.66-1.25) mg/dL Estimated GFR > 60.0 (>60) mL/min BUN/Creatinine Ratio 20.2 (6-22) Glucose 115 H (80-110) mg/dL Calcium 8.3 L (8.4-10.2) mg/dL Total Bilirubin 1.0 (0.2-1.3) mg/dL Conjugated Bilirubin 0.0 (0.0-0.3) md/dL Unconjugated Bilirubin 0.5 (0.0-1.1) mg/dL AST 53 (17-59) IU/L ALT 68 H (<50) IU/L Alkaline Phosphatase 272 H (38-126) U/L Ammonia < 9 L (9-30) umol/L Total Creatine Kinase (55-170) U/L CK-MB (CK-2) CK-MB (CK-2) Rel Index Troponin I (0.01-0.034) ng/mL Total Protein 6.0 L (6.3-8.2) g/dL Albumin 3.2 L (3.5-5.0) g/dL Globulin 2.8 (1.7-4.1) g/dL Albumin/Globulin Ratio 1.1 (1.0-2.8) Lipase 631 H (23-300) U/L 04/14/21 Range/Units 03:20 WBC (4.5-11.0) X10^3/uL RBC (4.5-5.9) X10^6/uL Hgb (13.5-17.5) g/dL Hct (41-53) % MCV (80-100) fL MCH (26-34) PG MCHC (30-36) % RDW (11.6-14.8) % Plt Count (150-400) X10^3/uL Neut % (Auto) (50-75) % Lymph % (Auto) (25-40) % [place] % (Auto) (3-14) % Eos % (Auto) (2-4) % Baso % (Auto) (0-2) % Neut # (Auto) (0666-7221) /uL Lymph # (Auto) (3331-9445) /uL [place] # (Auto) (0-900) /uL Eos # (Auto) (0-450) /uL Baso # (Auto) (0-100) /uL Sodium (137-145) mmol/L Potassium (3.4-5.1) mmol/L Chloride (98-107) mmol/L Carbon Dioxide (22-32) mmol/L BUN (9-20) mg/dL Creatinine (0.66-1.25) mg/dL Estimated GFR (>60) mL/min BUN/Creatinine Ratio (6-22) Glucose (80-110) mg/dL Calcium (8.4-10.2) mg/dL Total Bilirubin (0.2-1.3) mg/dL Conjugated Bilirubin (0.0-0.3) md/dL Unconjugated Bilirubin (0.0-1.1) mg/dL AST (17-59) IU/L ALT (<50) IU/L Alkaline Phosphatase (38-126) U/L Ammonia (9-30) umol/L Total Creatine Kinase 54 L (55-170) U/L CK-MB (CK-2) TNP CK-MB (CK-2) Rel Index TNP Troponin I 0.076 H (0.01-0.034) ng/mL Total Protein (6.3-8.2) g/dL Albumin (3.5-5.0) g/dL Globulin (1.7-4.1) g/dL Albumin/Globulin Ratio (1.0-2.8) Lipase (23-300) U/L Imaging Data Chest x-ray: Radiologist's Impression: No acute pulmonary abnormality is identified ECG Data Attestation: I personally reviewed and interpreted this ECG as follows: Prior ECG tracings: available for review Interpretation: EKG on arrival Sinus rhythm Ventricular rate of 107 White QRS at 128 milliseconds Left axis deviation Left bundle-branch block QTC 520 milliseconds Repeat EKG Sinus rhythm Ventricular rate 81 QRS 1 to a milliseconds Left axis deviation QTC 513 milliseconds These are similar to prior EKGs MDM Narrative Medical decision making narrative: Since arrival here in the emergency department patient has been alert oriented x3. He has no symptoms except for feeling fatigued. Was tachycardic upon arrival. I do question somewhat his initial blood pressure with a systolic of the 160s when he 1st arrived. EMS stated that he was hypotensive with a systolic blood pressure in the 80s. He only received 500 cc of fluid. After this initial blood pressure in the 160s repeat blood pressures here in the ER much more lower. He did have a period of time when his systolic were in the 80s. His mean arterial pressure was never below 60. He was still mentating fine. He was not having chest pain or shortness of breath or abdominal pain during any of these episodes. He has been unable to provide us any urine. He was bolused a total of 2 L (which included the 500 cc of fluid by EMS) here in the emergency department and his systolic blood pressure recovered to the 90s. His lactate was 1.1. He was started on another 500 cc/hour for 2 hour of fluid. His lactate was elevated. I do not have a specific source of any infection. Does not appear that he has any skin infection. He has no headache. No neck pain. No shortness of breath. No cough. His COVID is negative. Chest x-ray shows no signs of pneumonia. He has no abdominal tenderness. Despite all of this given his tachycardia upon arrival and his leukocytosis he was given Rocephin. His states he has been on antibiotics for the past several days since he had his biliary stent replaced. She does not know what antibiotic he has been on. I did not feel that obtaining blood cultures would be helpful because of this. His EKG is unchanged from prior. He does have a bump in his troponin today. This is in the setting of having no chest pain or shortness of breath. He was given an aspirin. He states he has not had any black colored stools or dark-colored stools recently. Besides Plavix he is on no other anticoagulation per his report. I do not feel the indication for a CT scan of his head Or abdomen here in the ER. I feel that his hypotension very well could be under resuscitation/dehydration. His states that he has not been eating well recently. She does think that he has been drinking however he has not been able to provide us any urine despite 2 L of fluid. His creatinine is unremarkable. He has no signs of heart failure. Discussed the case with Dr. Vanessa who is on-call for the patient's primary provider. Initially patient was going to be admitted to the floor however given his hypotensive episodes of feel that ICU admission would be more warranted. I discussed this with her and she agrees. Discussed the need for admission with the patient and his . They both expressed understanding and agreement. His liver function tests are actually improved from prior. He does have a slight elevation in his lipase but he has no clinical signs of pancreatitis. His bilirubin is normal. Critical Care Time Critical Care Time Critical Care Time: Yes Total Critical Care Time: 40 Attestation: The high probability of a clinically significant, sudden or life threatening deterioration of the cardiovascular/circulatory system(s) required my full and direct attention, intervention and personal management. The aggregate critical care time was [40] minutes. This time is in addition to time spent performing reported procedures but includes the following: [x] Data Review and interpretation [x] Patient assessment and monitoring of vital signs [x] Documentation [x] Medication orders and management Discharge Plan Departure Patient Disposition: Admitted As Inpatient Clinical Impression: Fatigue, Leukocytosis, Hypotension Admit Date/Time: 10/25/20 04:51 Admit Provider: Brandyn Conklin
[2020-10-25] MEDS: SODIUM CHLORIDE 0.9% 1,000 ML 125 ML IV ×3 (03:14→17:01)
[2020-10-25 03:35] LABS: Add Manual Diff / Slide Review NO; Basophils Absolute Auto 100 /uL (0-100); Basophils Percent Auto 0.8 % (0-2); Eosinophils Absolute Auto 0 /uL (0-450); Eosinophils Percent Auto 0.2 % (2-4); Hematocrit 35.2 % (41-53); Hemoglobin 11.7 g/dL (13.5-17.5); Lymphocytes Absolute Auto 900 /uL (1100-4500); Lymphocytes Percent Auto 5.6 % (25-40); Mean Corpuscular HGB Conc 33.2 % (30-36); Mean Corpuscular Hemoglobin 30.6 PG (26-34); Mean Corpuscular Volume 92.4 fL (80-100); Monocytes Absolute Auto 1000 /uL (0-900); Monocytes Percent Auto 6.3 % (3-14); Neutrophils Absolute Auto 13500 /uL (1500-7000); Neutrophils Percent Auto 87.1 % (50-75); Platelet Count 161 X10^3/uL (150-400); Red Blood Cell Count 3.81 X10^6/uL (4.5-5.9); Red Cell Distribution Width 12.7 % (11.6-14.8); White Blood Cell Count 15.5 X10^3/uL (4.5-11.0)
[2020-10-25 03:42] LABS: Ammonia (NH3) < 9 umol/L (9-30)
[2020-10-25 03:44] LABS: Alanine Aminotransferase 68 IU/L (<50); Albumin 3.2 g/dL (3.5-5.0); Albumin Globulin Ratio 1.1 (1.0-2.8); Alkaline Phosphatase 272 U/L (38-126); Aspartate Aminotransferase 53 IU/L (17-59); BUN Creatinine Ratio 20.2 (6-22); Bilirubin Unconjugated 0.5 mg/dL (0.0-1.1); Blood Urea Nitrogen 22 mg/dL (9-20); Calcium 8.3 mg/dL (8.4-10.2); Carbon Dioxide 23 mmol/L (22-32); Chloride 100 mmol/L (98-107); Creatine Kinase 54 U/L (55-170); Estimated Glomerular Filt Rate > 60.0 mL/min (>60); Globulin 2.8 g/dL (1.7-4.1); Glucose 115 mg/dL (80-110); HEMOLYSIS < 15 (0-50); Lipase 631 U/L (23-300); Potassium 3.5 mmol/L (3.4-5.1); Sodium 132 mmol/L (137-145)
--- NOTE | 2020-10-25 03:53 | DI.RAD.S_ITS ---
PROCEDURE: XR CHEST 1V INDICATIONS: eval for Pneumonia TECHNIQUE: One view of the chest was acquired. COMPARISON: None. FINDINGS: Surgical changes and devices: None. Lungs and pleura: Lungs are clear. No pleural effusions or pneumothorax. Mediastinum: Mediastinal contours appear normal. Heart size is normal. Bones and chest wall: No suspicious bony lesions. Overlying soft tissues appear unremarkable. IMPRESSION: No acute cardiopulmonary disease process. Dictated by: Myesha Azul MD, PhD on 10/25/2020 at 8:18 Approved by: Myesha Azul MD, PhD on 10/25/2020 at 8:19
[2020-10-25 03:56] LABS: Troponin I 0.076 ng/mL (0.01-0.034)
[2020-10-25] MEDS: CEFTRIAXONE 1 GM/50 ML FROZ.PIGGY IV ×2 (04:48→17:02)
[2020-10-25] MEDS: ASPIRIN 81 MG CHEW TAB 324 MG PO (04:56)
--- NOTE | 2020-10-25 05:21 | PC.NURSE ---
his b/p dropped into the upper 80's systolic,DR Harvey notified and fluid bolus started.
--- NOTE | 2020-10-25 05:27 | PC.NURSE ---
His b/p is now 88/53 with a MAP of 66,DR ayala notified and 500 ml ns bolus started.
[2020-10-25 05:55] LABS: COVID19 - ADMIT (NP swab/PCR) Negative (Negative)
[2020-10-25] MEDS: SODIUM CHLORIDE 0.9% 1,000 ML 1000 ML IV ×2 (06:01→08:20)
[2020-10-25 06:03] LABS: Creatine Kinase 45 U/L (55-170)
[2020-10-25 06:15] LABS: Troponin I 0.095 ng/mL (0.01-0.034)
--- NOTE | 2020-10-25 06:20 | PC.NURSE ---
Report called to Alicja MENG,his b/p is now 91/51 and hr is 69,he has no pain.
[2020-10-25 06:21] LABS: Lactate (Lactic Acid) 1.1 mmol/L (0.7-2.1)
[2020-10-25] MEDS: SODIUM CHLORIDE 0.9% 1,000 ML 500 ML IV (06:24)
--- NOTE | 2020-10-25 06:25 | PC.NURSE ---
He has gotten a total of #2 liters normal saline here and the third liter is up at 500 ml per hour.
--- NOTE | 2020-10-25 08:06 | PM.HP.1 ---
History of Present Illness History of Present Illness Date Patient Seen: 10/25/20 Time Patient Seen: 08:06 Chief complaint: Fall Narrative: 79-year-old male history coronary artery disease hypertension hyperlipidemia recent diagnosis of biliary cancer. Patient is being followed down at [facility] [place]. Has had a couple of biliary stents placed in on last Friday had a metal stent placed. He has been following up with Oncology Gastroenterology and Cardiology. Patient has surgery for appointment tomorrow to discuss surgical options for treatment of his biliary cancer. Patient is anticipating undergoing chemotherapy. He comes in today with his because of ongoing concerns about weakness. She says his weakness has been a gradual process over the last few weeks. He has been a little bit hypotensive at a couple of his doctor visits. Last night he was trying to get out of bed any just slid out of bed. Had a hard time getting up which is super weak unable to walk. That point she became concerned and called 911. they have no explanation for the weakness other than he is not eating and not maybe drinking very well. He has really lost his appetite. The been trying to keep him hydrated with water but not so much. He has not had any problems with headache blurry vision no cough. They are not aware that he has had any temperature fevers. He has had normal bowel movements. He has had no urination since being in the hospital is had a couple L of fluid. [facility] he is lying in bed. He is feeling a little bit weak. He is hypotensive. He is getting a 500 cc fluid bolus. He has a good for historian and alert oriented to place and time. Although his provides most of the history as he says his short-term memory is not as good. Discussed is advance care directives. If his heart Was to stop you would like to have CPR instituted and directed although he desires not to be on long-term life support if needed. He was still like to anticipate having surgery and chemotherapy for his condition. Patient History Medical History Congestive heart failure (12/01/14) Coronary artery disease (12/01/14) Essential hypertension (12/11/10) Status post coronary angioplasty (12/01/14) Vitamin B12 deficiency Surgical History History of cataract removal with insertion of prosthetic lens (02/20/16) History of cataract removal with insertion of prosthetic lens (03/05/16) History of knee replacement History of tonsillectomy Status post arthroscopy Stented coronary artery Family & Social History Social History: household members spouse Prior Living Arrangements House lives independently Yes caregiver/support person No Safety & Behavioral: Feels Safe in Current Yes Environment Been Physically Hurt or No Threatened By a Person Suicidal Ideation Description None Suicide Plan Description No Plan Tobacco & Substance use: Tobacco type cigarettes Smoking Status Former smoker Smoking packs per day 1 alcohol intake former alcohol intake frequency holiday/special occasion Substance Use Type does not use Meds Home Medications and Allergies Home Medications Medication Instructions Recorded Confirmed Type ASPIRIN (Aspirin EC) 81 mg PO Q DAY #0 12/11/10 10/25/20 History atorvastatin 40 mg tablet 40 mg PO DAILY 07/28/18 10/25/20 History spironolactone 25 mg tablet 12.5 mg PO DAILY tab 07/19/19 10/25/20 History clopidogrel 75 mg tablet See Rx Instructions .ROUTE 05/01/20 10/25/20 Rx .COMPLEX #90 tablet carvedilol 6.25 mg tablet 6.25 mg PO BID #60 tab 08/04/20 10/25/20 Rx pantoprazole 40 mg tablet,delayed 40 mg PO BID tab 09/20/20 10/25/20 History release fluoxetine 20 mg tablet 20 mg PO QDAY #90 tab 10/09/20 10/25/20 Rx lisinopril 5 mg PO 10/25/20 History Allergies Allergy/AdvReac Type Severity Reaction Status Date / Time No Known Drug Allergies Allergy Verified 09/25/20 11:15 Exam Vital Signs (past 8 hours): - 10/25/20 03:06 10/25/20 03:30 10/25/20 04:00 Temperature 98.5 F Pulse Rate 106 H 104 H 97 H Respiratory Rate 16 18 18 Blood Pressure 162/86 H Pulse Oximetry 98 95 10/25/20 04:22 10/25/20 04:30 10/25/20 05:00 Temperature Pulse Rate 104 H 102 H 102 H Respiratory Rate 20 17 18 Blood Pressure 91/53 L 96/55 L 82/56 L Pulse Oximetry 99 98 99 10/25/20 05:13 10/25/20 05:14 10/25/20 05:16 Temperature Pulse Rate 69 100 H 99 H Respiratory Rate 20 17 19 Blood Pressure 91/51 L 80/52 L 84/53 L Pulse Oximetry 97 96 96 10/25/20 05:24 10/25/20 05:30 10/25/20 05:45 Temperature Pulse Rate 81 80 71 Respiratory Rate 13 18 26 H Blood Pressure 88/53 L 80/51 L 76/49 L Pulse Oximetry 97 98 98 10/25/20 05:55 10/25/20 05:56 10/25/20 06:00 Temperature Pulse Rate 66 67 80 Respiratory Rate 20 18 19 Blood Pressure 83/51 L 83/52 L 82/55 L Pulse Oximetry 96 95 96 10/25/20 06:08 10/25/20 06:15 10/25/20 06:30 Temperature Pulse Rate 67 68 67 Respiratory Rate 17 15 17 Blood Pressure 92/54 L 91/51 L 84/53 L Pulse Oximetry 95 94 96 10/25/20 06:56 Temperature 97.6 F Pulse Rate 65 Respiratory Rate 22 Blood Pressure 83/50 L Pulse Oximetry 98 Oxygen Delivery Method Room Air Objective Labs Result Diagrams: 10/25/20 03:20 10/25/20 03:20 Labs: Laboratory Results - last 24 hr 10/25/20 10/25/20 10/25/20 03:20 03:20 03:20 WBC 15.5 H RBC 3.81 L Hgb 11.7 L Hct 35.2 L MCV 92.4 MCH 30.6 MCHC 33.2 RDW 12.7 Plt Count 161 Neut % (Auto) 87.1 H Lymph % (Auto) 5.6 L [place] % (Auto) 6.3 Eos % (Auto) 0.2 L Baso % (Auto) 0.8 Neut # (Auto) 55085 H Lymph # (Auto) 900 L [place] # (Auto) 1000 H Eos # (Auto) 0 Baso # (Auto) 100 Sodium 132 L Potassium 3.5 Chloride 100 Carbon Dioxide 23 BUN 22 H Creatinine 1.09 Estimated GFR > 60.0 BUN/Creatinine Ratio 20.2 Glucose 115 H Lactate Calcium 8.3 L Total Bilirubin 1.0 Conjugated Bilirubin 0.0 Unconjugated Bilirubin 0.5 AST 53 ALT 68 H Alkaline Phosphatase 272 H Ammonia < 9 L Total Creatine Kinase CK-MB (CK-2) CK-MB (CK-2) Rel Index Troponin I Total Protein 6.0 L Albumin 3.2 L Globulin 2.8 Albumin/Globulin Ratio 1.1 Lipase 631 H SARS-CoV-2 (PCR) 10/25/20 10/25/20 10/25/20 03:20 03:20 04:55 WBC RBC Hgb Hct MCV MCH MCHC RDW Plt Count Neut % (Auto) Lymph % (Auto) [place] % (Auto) Eos % (Auto) Baso % (Auto) Neut # (Auto) Lymph # (Auto) [place] # (Auto) Eos # (Auto) Baso # (Auto) Sodium Potassium Chloride Carbon Dioxide BUN Creatinine Estimated GFR BUN/Creatinine Ratio Glucose Lactate 1.1 Calcium Total Bilirubin Conjugated Bilirubin Unconjugated Bilirubin AST ALT Alkaline Phosphatase Ammonia Total Creatine Kinase 54 L CK-MB (CK-2) TNP CK-MB (CK-2) Rel Index TNP Troponin I 0.076 H Total Protein Albumin Globulin Albumin/Globulin Ratio Lipase SARS-CoV-2 (PCR) Negative 10/25/20 05:45 WBC RBC Hgb Hct MCV MCH MCHC RDW Plt Count Neut % (Auto) Lymph % (Auto) [place] % (Auto) Eos % (Auto) Baso % (Auto) Neut # (Auto) Lymph # (Auto) [place] # (Auto) Eos # (Auto) Baso # (Auto) Sodium Potassium Chloride Carbon Dioxide BUN Creatinine Estimated GFR BUN/Creatinine Ratio Glucose Lactate Calcium Total Bilirubin Conjugated Bilirubin Unconjugated Bilirubin AST ALT Alkaline Phosphatase Ammonia Total Creatine Kinase 45 L CK-MB (CK-2) TNP CK-MB (CK-2) Rel Index TNP Troponin I 0.095 H Total Protein Albumin Globulin Albumin/Globulin Ratio Lipase SARS-CoV-2 (PCR) Assessment & Plan Assessment & Plan narrative: Hypotension. Patient admitted the hospital with weakness and significant profound hypotension with blood pressures 80s and 90s systolic. Potential possibilities include dehydration due to his underlying minute in see cannot disc fluid underlying infectious etiologies. Patient was given fluid resuscitation in the emergency room is getting now another fluid bolus. He has not had any urine out and does not have a distended bladder. He was given a dose of ceftriaxone in the emergency department. Patient did not have blood cultures drawn before. Patient had mild elevation of his white blood cell count. His lactic acid is normal. Patient just is finishing a course of antibiotics after changing of his stent a week ago. Differential possibilities of his hypotension include dehydration versus infectious said he all itchy. I will repeat as CBC lactic acid and keep him on his antibiotics. He has now had about 3 L of fluid since arrival in his blood pressure still low. Patient does not have a history of heart failure we will continue with the fluid judiciously to see if we can not help his the hypotension she was blood pressure medications will be held. And will see how he responds. Type 2 myocardial infarction. Patient has elevation of cardiac enzymes. Patient has a history of coronary artery disease and stenting. Patient is currently taking Plavix and beta-joselin and GIGI-inhibitor. His beta-joselin and Gigi inhibitor will be held to be restarted on his Plavix. I am assuming this is just elevation because of myocardial stress due to his underlying illness and weakness. Will trend his cardiac enzymes. His EKG shows a left bundle branch block and initially quite profound tachycardia which is now resolved. Common bile duct cancer with adenocarcinoma. Undergoing workup and evaluation of this. Patient is anticipating potential surgery and chemotherapy. These are his current wishes for treatment of this. Will recheck his liver enzymes which are mildly elevated but improved before previous diagnosis. Just had a PET scan done and has a follow-up with a surgeon down in [place]. Depression. Patient will be continued on his fluoxetine 20 mg a day. Hyperlipidemia patient will be continued on his atorvastatin 40 mg a day Code status discussed with patient his advance care wishes. Patient would like to be resuscitated but does not want to be on long-term life support. Patient needs inpatient criteria. Will be receiving IV fluids IV antibiotics and anticipate patient staying greater than 2 midnights.
[2020-10-25] MEDS: CLOPIDOGREL 75 MG TABLET PO (08:16)
[2020-10-25] MEDS: ENOXAPARIN 40 MG/0.4 ML SYRINGE SUBCUT (08:16)
[2020-10-25] MEDS: PANTOPRAZOLE 40 MG TABLET PO ×2 (08:16→20:32)
[2020-10-25] MEDS: FLUoxetine 20 MG CAPSULE PO (08:16)
[2020-10-25 08:54] LABS: BUN Creatinine Ratio 19.2 (6-22); Blood Urea Nitrogen 19 mg/dL (9-20); Calcium 7.4 mg/dL (8.4-10.2); Carbon Dioxide 23 mmol/L (22-32); Chloride 105 mmol/L (98-107); Estimated Glomerular Filt Rate > 60.0 mL/min (>60); Glucose 116 mg/dL (80-110); HEMOLYSIS < 15 (0-50); Potassium 3.6 mmol/L (3.4-5.1); Sodium 131 mmol/L (137-145)
[2020-10-25 08:55] LABS: Add Manual Diff / Slide Review NO; Basophils Absolute Auto 0 /uL (0-100); Basophils Percent Auto 0.1 % (0-2); Eosinophils Absolute Auto 0 /uL (0-450); Hematocrit 28.9 % (41-53); Hemoglobin 9.6 g/dL (13.5-17.5); Lactate (Lactic Acid) 0.9 mmol/L (0.7-2.1); Lymphocytes Absolute Auto 1800 /uL (1100-4500); Lymphocytes Percent Auto 11.3 % (25-40); Mean Corpuscular HGB Conc 33.2 % (30-36); Mean Corpuscular Hemoglobin 30.8 PG (26-34); Mean Corpuscular Volume 92.7 fL (80-100); Monocytes Absolute Auto 1000 /uL (0-900); Monocytes Percent Auto 6.2 % (3-14); Neutrophils Absolute Auto 13100 /uL (1500-7000); Neutrophils Percent Auto 82.4 % (50-75); Platelet Count 145 X10^3/uL (150-400); Red Blood Cell Count 3.12 X10^6/uL (4.5-5.9); Red Cell Distribution Width 12.5 % (11.6-14.8); White Blood Cell Count 15.9 X10^3/uL (4.5-11.0)
--- NOTE | 2020-10-25 13:43 | CM.DANOTE ---
DCP/Assessment: Reviewed chart. Patient is a 79yr old male admitted to [facility] with weakness and hypotension. PCP is Dr. Conklin. [facility] Met with patient explained CM/SW role. Patient resting in bed comfortably at time of LAUNCH MANAGER visit. Patient reports that he resides in [place] with spouse/Carola. Patient using walking cane to ambulate long distances outside, otherwise patient reports being I in ADL's. Patient newly diagnosed with biliary CA. Patient followed by [facility]. Patient indicates that he did have appointment tomorrow with surgery for potential gall bladder removal. However, due to illness and hospitalization it was cancelled. Patient reports that his spouse is re-scheduling. Therapy evaluation currently pending. Per RN/Hakeem, therapy evaluation today probably will not happen due to patient's low BP. Patient plans to d/c home when medically stable. CM team to follow closely for any needs. P: Anticipate home. Continue to follow closely. MONTSERRAT Baum Discharge Planning/Care Management Advanced directive, confirm from FAMILY Start: 10/25/20 08:05 Freq: Q24H Status: Complete Protocol: Document 10/25/20 08:05 JLN (Rec: 10/25/20 08:48 JLN [id number]) Advance Directive, confirm on record Time 08:00 Person contacted pt/spouse Copy received Yes CM Discharge Assessment Start: 10/25/20 13:31 Freq: Status: Active Protocol: Document 10/25/20 13:31 KJS (Rec: 10/25/20 13:43 KJS [id number]) Discharge Planning Assessment Assigned Yarn Salvager MONTSERRAT Baum Contact Information Carola Beckwith (spouse) # Advance Directives? Yes Advance Directives on File No History Provided By Patient,Medical Record Prior Living Arrangements House Household Members spouse Type of transporation used prior to Drives own vehicle admit Independent with ADL's Yes Is patient alert and oriented? Yes Caregiver for Another No DME Already Rented / Owned Other Comment Patient reports that he uses walking stick when he is outside. Barriers to Discharge No Discharge Plan Home Transportation Arrangement Family to provide transport when medically stable. Inpatient Status as of 10/25/20 Comment Inpatient from time of admit. Whiteboard Updated in Patient Room with Yes name and ext. # of Yarn Salvager Review Status In Process Next Review Type Continued Stay Review
--- NOTE | 2020-10-25 14:49 | PC.NURSE ---
Pt's bps remain low with MAPs greater than 60. Denies dizziness/lightheadedness. Reports fatigue and weakness, generalized. SB 1 degree AVB and BBB on bedside monitor with frequent PVCs. Pt denies any pain, chest pain, chest pressure, palpitations, dyspnea. His lungs are CTAB and he has be satting well on RA. BLOWING WEASAND reported that pt had large BM and that small amount of blood was noted when he wiped. This is reported to Dr. Conklin and instruction received to monitor for bleeding.
[2020-10-25] MEDS: ATORVASTATIN 20 MG TABLET 40 MG PO (20:33)
--- NOTE | 2020-10-25 22:22 | PC.NURSE ---
At 1904 patient had a 4 beat run of Vtach. Patient was asleep and asymptomatic. Vitals otherwise unremarkable. Notified Dr. Vanessa of the Vtach and that the patient has a prolonged QT. Received orders to hold zofran until the morning.
[2020-10-26] MEDS: SODIUM CHLORIDE 0.9% 1,000 ML 125 ML IV (01:04)
[2020-10-26 01:10] VITALS: BP 95/58; PULSE 64; RESP 17; TEMP 36.9; O2SAT 96
[2020-10-26 04:54] VITALS: BP 120/60; PULSE 58; RESP 20; TEMP 35.8; O2SAT 95
[2020-10-26] MEDS: CEFTRIAXONE 1 GM/50 ML FROZ.PIGGY IV (05:01)
[2020-10-26 05:06] LABS: Add Manual Diff / Slide Review NO; Basophils Absolute Auto 100 /uL (0-100); Basophils Percent Auto 0.7 % (0-2); Eosinophils Absolute Auto 300 /uL (0-450); Eosinophils Percent Auto 3.2 % (2-4); Hematocrit 29.4 % (41-53); Hemoglobin 9.7 g/dL (13.5-17.5); Lymphocytes Absolute Auto 2200 /uL (1100-4500); Lymphocytes Percent Auto 20.8 % (25-40); Mean Corpuscular HGB Conc 33.1 % (30-36); Mean Corpuscular Volume 93.8 fL (80-100); Monocytes Absolute Auto 900 /uL (0-900); Monocytes Percent Auto 8.8 % (3-14); Neutrophils Absolute Auto 6900 /uL (1500-7000); Neutrophils Percent Auto 66.5 % (50-75); Platelet Count 135 X10^3/uL (150-400); Red Blood Cell Count 3.14 X10^6/uL (4.5-5.9); Red Cell Distribution Width 12.6 % (11.6-14.8); White Blood Cell Count 10.4 X10^3/uL (4.5-11.0)
[2020-10-26 05:19] LABS: Alanine Aminotransferase 46 IU/L (<50); Albumin 2.4 g/dL (3.5-5.0); Alkaline Phosphatase 178 U/L (38-126); Aspartate Aminotransferase 33 IU/L (17-59); BUN Creatinine Ratio 17.6 (6-22); Bilirubin Total 0.5 mg/dL (0.2-1.3); Blood Urea Nitrogen 16 mg/dL (9-20); Calcium 7.6 mg/dL (8.4-10.2); Carbon Dioxide 22 mmol/L (22-32); Chloride 108 mmol/L (98-107); Estimated Glomerular Filt Rate > 60.0 mL/min (>60); Globulin 2.3 g/dL (1.7-4.1); Glucose 97 mg/dL (80-110); HEMOLYSIS < 15 (0-50); Potassium 3.8 mmol/L (3.4-5.1); Sodium 133 mmol/L (137-145); Total Protein 4.7 g/dL (6.3-8.2)
[2020-10-26 07:34] VITALS: BP 138/60; PULSE 56; RESP 20; TEMP 36.2; O2SAT 97
[2020-10-26] MEDS: CLOPIDOGREL 75 MG TABLET PO (08:24)
[2020-10-26] MEDS: PANTOPRAZOLE 40 MG TABLET PO (08:24)
--- NOTE | 2020-10-26 09:36 | P.DS_ITS ---
History of Present Illness History of Present Illness Chief complaint: Fall Narrative: 79-year-old male history coronary artery disease hypertension hyperlipidemia recent diagnosis of biliary cancer. Patient is being followed down at [facility]. Has had a couple of biliary stents placed in on last Friday had a metal stent placed. He has been following up with Oncology Gastroenterology and Cardiology. Patient has surgery for appointment tomorrow to discuss surgical options for treatment of his biliary cancer. Patient is anticipating undergoing chemotherapy. He comes in today with his because of ongoing concerns about weakness. She says his weakness has been a gradual process over the last few weeks. He has been a little bit hypotensive at a couple of his doctor visits. Last night he was trying to get out of bed any just slid out of bed. Had a hard time getting up which is super weak unable to walk. That point she became concerned and called 911. they have no expla nation for the weakness other than he is not eating and not maybe drinking very well. He has really lost his appetite. The been trying to keep him hydrated with water but not so much. He has not had any problems with headache blurry vision no cough. They are not aware that he has had any temperature fevers. He has had normal bowel movements. He has had no urination since being in the hospital is had a couple L of fluid. [facility] give [facility] he is lying in bed. He is feeling a little bit weak. He is hypotensive. He is getting a 500 cc fluid bolus. He has a good for historian and alert oriented to place and time. Although his provides most of the history as he says his short-term memory is not as good. Discussed is advance care directives. If his heart Was to stop you would like to have CPR instituted and directed although he desires not to be on long-term life support if needed. He was still like to anticipate having surgery and chemotherapy for his condition. Discharge Providers Provider Date of admission: 10/25/20 04:51 Discharge Date: 10/26/20 Primary care physician: Brandyn Conklin MD Consults: 10/25/20 04:51 Consult to Physician Stat Comment: Consulting Provider: Heather Vanessa Reason for consultation: admission Has provider been notified: Yes 10/25/20 04:54 Consult to Physician Urgent Comment: Consulting Provider: Brandyn Conklin Reason for consultation: Admission Has provider been notified: No 10/25/20 08:05 Consult to Dietitian, Adult Routine Comment: Reason For Exam: malnutrition, new ca dx Discharge provider: Brandyn Conklin MD Summary Hospital Course Discharge Diagnosis: Hypotension due to dehydration possible infection Mild Elevation of cardiac enzymes with a history of coronary artery disease Biliary cancer status post endoscopic stenting with potential metastatic disease with PET scan showing lymphadenopathy Gastroesophageal reflux Depression Hospital Course: Patient was admitted the hospital with weakness significant hypotension and dehydration. Patient lives at home with his and undergoing diagnostic valuation workup for biliary cancer. Patient has had stent placed in his bile duct. He just had his 3rd 1 done and now has a more permanent 1. Has an appointment with a surgeon to consider surgical options for treatment this met with Oncology as well. He has been not feeling well over the last few months. Has increasing difficulty with appetite and fluids. Patient on admission was found to be hypotensive and elevated white blood cell count with a normal lactic acid. Patient recently finished a course of antibiotics as they replaced his biliary stent last week. Hospital course. Placement was placed back on antibiotics due to elevation of his white blood cell count and hypotension. Patient had a normal lactic acid. Patient did not have blood cultures prior to his antibiotics. Patient required approximately 6 L of fluid to increase his blood pressure. Over the ensuing hospital stay. Patient had gradual improvement of his blood pressure and his weakness. The patient was eating well in the hospital. Patient by the next day was ambulating his blood pressure was much and solved. His white blood cell count was that down to normal. His kidney function was normal his electrolytes are at baseline. Patient had mild elevation of liver enzymes alkaline phosphatase which is not abnormal for him. We did review patient's PET scan with he and his in the hospital today which shows his biliary a dental carcinoma with possible lymphadenopathy. They do have an appointment to see a surgeon in regards to potential surgical treatment and options for the cancer. Exam Vital Signs (past 8 hours): - 10/26/20 04:54 10/26/20 07:34 Temperature 96.5 F L 97.1 F L Pulse Rate 58 L 56 L Respiratory Rate 20 20 Blood Pressure 120/60 138/60 Pulse Oximetry 95 97 Oxygen Delivery Method Room Air Oxygen Flow Rate 0 Objective Labs Result Diagrams: 10/26/20 04:50 10/26/20 04:50 Labs: Laboratory Results - last 24 hr 10/26/20 10/26/20 04:50 04:50 WBC 10.4 RBC 3.14 L Hgb 9.7 L Hct 29.4 L MCV 93.8 MCH 31.0 MCHC 33.1 RDW 12.6 Plt Count 135 L Neut % (Auto) 66.5 Lymph % (Auto) 20.8 L Gem % (Auto) 8.8 Eos % (Auto) 3.2 Baso % (Auto) 0.7 Neut # (Auto) 6900 Lymph # (Auto) 2200 Gem # (Auto) 900 Eos # (Auto) 300 Baso # (Auto) 100 Sodium 133 L Potassium 3.8 Chloride 108 H Carbon Dioxide 22 BUN 16 Creatinine 0.91 Estimated GFR > 60.0 BUN/Creatinine Ratio 17.6 Glucose 97 Calcium 7.6 L Total Bilirubin 0.5 AST 33 ALT 46 Alkaline Phosphatase 178 H Total Protein 4.7 L Albumin 2.4 L Globulin 2.3 Albumin/Globulin Ratio 1.0 PFSH Medical History Congestive heart failure (12/01/14) Coronary artery disease (12/01/14) Essential hypertension (12/11/10) Status post coronary angioplasty (12/01/14) Vitamin B12 deficiency Surgical History History of cataract removal with insertion of prosthetic lens (02/20/16) History of cataract removal with insertion of prosthetic lens (03/05/16) History of knee replacement History of tonsillectomy Status post arthroscopy Stented coronary artery Social History marital status: number of children: 2 household members: spouse lives independently: Yes caregiver/support person: No housing: house pets and animals: Yes education level: college occupational status: previously employed current occupational exposures/hazards: No 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 leisure activities: sports and exercise Smoking Status: Former smoker alcohol intake: former substance use type: marijuana Discharge Plan Discharge Plan Patient Disposition: Home Discharge orders & Medications Prescriptions: New cefdinir 300 mg capsule 300 mg PO BID Qty: 10 RF: 0 Continued pantoprazole 40 mg tablet,delayed release (DR/EC) 40 mg PO BID RF: 0 ASPIRIN (Aspirin EC) 81 mg PO Q DAY Qty: 0 RF: 0 clopidogrel 75 mg tablet See Rx Instructions .ROUTE .COMPLEX Qty: 90 RF: 3 fluoxetine 20 mg tablet 20 mg PO QDAY Qty: 90 RF: 3 atorvastatin 40 mg tablet 40 mg PO DAILY RF: 0 Changed carvedilol 6.25 mg tablet 3.125 mg PO BID Qty: 60 RF: 6 Discontinued spironolactone 25 mg tablet 12.5 mg PO DAILY RF: 0 lisinopril 5 mg tablet 5 mg PO DAILY RF: 0 Follow up/Referrals: Brandyn Conklin MD [Primary Care Provider] - Visit Report/Discharge Packet Visit Report Forms: Patient Portal/API, Stroke Signs & Symptoms Discharge Data Primary Care Provider: Brandyn Conklin
--- NOTE | 2020-10-26 10:06 | DIET.PN ---
Dietary Progress Note Assessment: 79y M recently diagnosed c biliary cancer admitted for weakness and fall referred to nutrition for malnutrition. Pt has had 5.5% unintentional weight loss in the past 1mo (severe). Pt has short term memory deficit so interview mainly c Carola. At baseline, pt eats healthy low carb diet, mostly salads c protein (s/p cardiac rehab several years ago), walks dog daily up and [place]. About 6w ago pts appetite dramatically decreased along with his energy level. Pts dealing c her own health issues and has 30# unintended weight loss since June. She can no longer cook secondary to extreme nausea. Between pts cancer dx and reduced appetite, his short term memory deficit, and pts 's inability to prepare meals, pt became dehydrated and had unintended protein calorie malnutrition. Pt has consumed 100% meals at hospital, his attributes this to the tray being ready made and put in front of him. Pt is feeling more energy today now that he is rehydrated and has consumed nourishments. HT: 182.8cm WT: 73.9kg (-5.5% in 1mo, severe) UBW: 86kg BMI: 22.1 (moderate malnutrition) Labs: WBC 15.9 H, Na 131 L, hgb 9.6 L, alk phos 272 H, lipase 631 H MNA: 5 malnourished Andrew: 21 Nutrition Diagnosis: Moderate Acute Malnutrition r/t inadequate oral intake aeb 5.5% unintended weight loss in 1 mo, BMI 22.1, pt endorses reduced appetite since before cancer dx, pt has short term memory deficits, pts has health issues limiting her ability to cook for pt. Interventions: 1. Recc ONS yogurt smoothie once daily and ONS Ensure Max once daily to support pts protein and calorie needs for nutrient repletion in addition to meal trays. 2. Introduced pt and to [employer] delivery which provides healthy, ready made meals. Both feel this will be good option for them once d/c. 3. Encouraged daily intake ONS protein drink to support pts nutrition status. Pt has Premier Protein at home and will start drinking once daily. Diet Order: General EER: 2200kcal (30kcal/kg per PCM), 89g Pro (1.2g/kg per PCM) Monitoring/Evaluations: weight, associated labs, POs, ONS tolerance
--- NOTE | 2020-10-26 11:19 | CM.DPNOTE ---
DC Note According to Dr Conklin, patient medically stable for DC and patient and spouse ready and agreeable to get home, patient will have close outpatient f/u. No needs identified from this ECONOMIST RESEARCH ASSISTANT JW
--- NOTE | 2020-11-16 13:31 | ONC.MSW ---
Description: New Referral Navigation T/C Reason for Referral: New Dx Biliary Cancer Activity: Reviewed EMR. Called pt to confirm that we've received his urgent referral, assessed medical status, acuity, and immediate needs. Pt has been initially worked-up at [facility], has not yet received any chemotherapy. He had 2-recent stents placed at [facility], a PET scan, and biopsy. Discussed the role of navigation and the ongoing assistance of support, resource referrals, and care coordination as needed. No immediate needs identified at this time. Confirmed his initial consult time for next Friday, 11/21 at 11:00am with Dr. Garcia, per their request.
== END 2020-10-26 13:35 | disposition home or self-care (01) | DRG 641 ==
LOC: ED 03:40 → AC 04:51 → ICU 08:35 → AC 13:17 → ICU 13:17
PROVIDERS: Admitting Provider Family Medicine; Emergency Provider Emergency Medicine; PCP Family Medicine; Referring Provider Emergency Medicine; Visit Provider Family Medicine
DX: E86.0 Dehydration (principal); C24.0 Malignant neoplasm of extrahepatic bile duct; C77.9 Secondary and unspecified malignant neoplasm of lymph node, unspecified; E44.0 Moderate protein-calorie malnutrition; I95.9 Hypotension, unspecified; R79.89 Other specified abnormal findings of blood chemistry; R00.0 Tachycardia, unspecified; I44.7 Left bundle-branch block, unspecified; F32.9 Major depressive disorder, single episode, unspecified; E78.5 Hyperlipidemia, unspecified; K21.9 Gastro-esophageal reflux disease without esophagitis; Z87.891 Personal history of nicotine dependence; B99.9 Unspecified infectious disease; Z68.22 Body mass index [BMI] 22.0-22.9, adult; Z20.822 Contact with and (suspected) exposure to COVID-19
CPT/HCPCS: 36415; 36592; 71045; 80048; 80053; 80076; 82140; 82550; 83605; 83690; 84484; 85025; 87635; 87797; 93005; 93010; 96361; 96365; 99284; C9803; J1650

== ENCOUNTER 2021-01-22 16:35 | Emergency (ER) | payer MEDICARE, SELFPAY ==
[2021-01-18 12:09] VITALS: BMI 21.6
[2021-01-22 16:39] VITALS: BP 121/65; PULSE 68; RESP 20; TEMP 36.6; O2SAT 99
--- NOTE | 2021-01-22 16:46 | DI.CT.S_ITS ---
PROCEDURE: CT HEAD/BRAIN WO CON INDICATIONS: trauma TECHNIQUE: Noncontrast 4.5 mm thick angled axial sections acquired from the foramen magnum to the vertex, with coronal and sagittal reformats. For radiation dose reduction, the following was used: automated exposure control, adjustment of mA and/or kV according to patient size. COMPARISON: None. FINDINGS: Image quality: Excellent. CSF spaces: Basal cisterns are patent. No extra-axial fluid collections. The ventricles are symmetric in size and shape. Brain: No intracranial bleeds or masses. There is cerebral volume loss for age, with resultant ventricular and sulcal prominence. There are periventricular and deep white matter chronic small vessel ischemic changes. There is intracranial internal carotid artery atherosclerosis. Small focal calcification noted in the right parietal sulcus consistent with prior granulomatous disease. Skull and face: Left periorbital soft tissue swelling. Sinuses: Visualized sinuses and mastoids are clear. IMPRESSION: Atrophy and chronic ischemic change without acute hemorrhage or mass effect Dictated by: Victor M Villalobos M.D. on 01/22/2021 at 16:00 Approved by: Victor M Villalobos M.D. on 01/22/2021 at 16:06
--- NOTE | 2021-01-22 16:46 | DI.CT.S_ITS ---
PROCEDURE: CT CERVICAL SPINE WO CON INDICATIONS: trauma TECHNIQUE: Noncontrast 3 mm thick sections acquired from the skull base to the T4 level. Sagittal and coronal reformats were then constructed. For radiation dose reduction, the following was used: automated exposure control, adjustment of mA and/or kV according to patient size. COMPARISON: None. FINDINGS: Image quality: Excellent. Bones: No fractures or dislocations. Visualized superior ribs are intact. Disc space narrowing and hypertrophic uncovertebral joints noted in the mid cervical spine resulting in resulting in [id number] central stenosis at C4-5, C5-6 and C6-7 with right sided foraminal stenosis. Soft tissues: Prevertebral soft tissues are normal in thickness. No paravertebral hematomas. No apical pneumothoraces. Moderate left pleural effusion present. Atherosclerotic vascular calcification noted in both proximal internal carotid arteries IMPRESSION: 1. No fracture or malalignment. 2. Moderate left pleural effusion. 3. Multilevel degenerative disc disease and arthropathy with mild to moderate central and right-sided foraminal stenosis Dictated by: Victor M Villalobos M.D. on 01/22/2021 at 16:48 Approved by: Victor M Villalobos M.D. on 01/22/2021 at 16:53
--- NOTE | 2021-01-22 20:04 | ED.TRAUMA ---
HPI - Trauma General Chief Complaint: Trauma Stated Complaint: HIT LEFT SIDE OF HEAD LACERATION Time Seen by Provider: 01/22/21 18:01 Source: patient and family Mode of arrival: Ambulatory History of Present Illness HPI narrative: 80-year-old male nonsmoker with history of hypertension, hyperlipidemia on Plavix presents with his significant other and a chief complaint of ground level fall resulting in the left side head injury. He has a jagged laceration above his left eye that bled significantly on scene. He states he was walking his dogs and early she has got caught up under his feet causing him to fall and strike his head. He has full recall and denies any loss of consciousness nor nausea or vomiting. He has no focal neurologic symptoms such as blurred vision, trouble speech nor numbness, tingling or weakness. Patient activated as a modified trauma given fall with head injury on Plavix Related Data Home Medications Medication Instructions Recorded Confirmed ASPIRIN (Aspirin EC) 81 mg PO Q DAY #0 12/11/10 11/30/20 atorvastatin 40 mg tablet 40 mg PO DAILY 07/28/18 11/30/20 pantoprazole 40 mg tablet,delayed 20 mg PO BID tab 09/20/20 11/30/20 release Previous Rx's Medication Instructions Recorded clopidogrel 75 mg tablet See Rx Instructions .ROUTE 05/01/20 .COMPLEX #90 tablet fluoxetine 20 mg tablet 20 mg PO QDAY #90 tab 10/09/20 carvedilol 6.25 mg tablet 3.125 mg PO BID #60 tab 10/26/20 Allergies Allergy/AdvReac Type Severity Reaction Status Date / Time No Known Drug Allergies Allergy Verified 11/30/20 11:27 Review of Systems Review of Systems Narrative: GENERAL: Denies chills, fatigue, malaise, fever, sweats. HEENT: Denies sinus pain, ear pain, sore throat, difficulty swallowing, dizziness. RESPIRATORY: Denies dyspnea, cough, wheezing, hemoptysis, sputum. CARDIOVASCULAR: Denies chest pain, palpitations, orthopnea, edema, GASTROINTESTINAL: Denies nausea, vomiting, abdominal pain, diarrhea, constipation, melena. : Denies dysuria, frequency, incontinence, hematuria, urinary retention. MUSCULOSKELETAL: denies weakness, joint pain, or bony pain SKIN: See HPI NEUROLOGIC: Denies weakness, headache, numbness, change in speech, confusion, seizures, incoordination. PSYCHIATRIC: No concerning psychosocial issues. 12 point review of systems is negative except for those stated above Patient History Medical History Congestive heart failure (12/01/14) Coronary artery disease (12/01/14) Essential hypertension (12/11/10) Status post coronary angioplasty (12/01/14) Vitamin B12 deficiency Surgical History History of cataract removal with insertion of prosthetic lens (02/20/16) History of cataract removal with insertion of prosthetic lens (03/05/16) History of knee replacement History of tonsillectomy Status post arthroscopy Stented coronary artery Social History marital status: number of children: 2 household members: spouse lives independently: Yes caregiver/support person: No housing: house pets and animals: Yes education level: college occupational status: previously employed current occupational exposures/hazards: No 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 Well-developed patient, in mild distress. GCS 15 HEAD: 2.5 cm are regular and deep laceration superior to left brow. No active bleeding, deep layers involved, no evidence of depressed skull fracture EYES: Pupils equal round and reactive. Extraocular motions intact. No scleral icterus. No injection or drainage. ENT: Nose without bleeding, purulent drainage. Throat without erythema, tonsillar hypertrophy or exudate. Airway patent. NECK: Trachea midline. Non tender CARDIOVASCULAR: Regular rate and rhythm without murmurs, gallops, or rubs. RESPIRATORY: Clear to auscultation. Breath sounds equal bilaterally. No wheezes, rales, or rhonchi. GASTROINTESTINAL: Abdomen soft, non-tender, nondistended. EXTREMITIES: No edema or joint tenderness. BACK: Nontender without deformity or crepitance. No flank tenderness. NEURO: AOx3. SKIN: No rash or erythema of visible areas Initial Vital Signs Initial Vital Signs: Vital Signs Temperature 97.9 F 01/22/21 16:39 Pulse Rate 68 01/22/21 16:39 Respiratory Rate 20 01/22/21 16:39 Blood Pressure 121/65 01/22/21 16:39 Pulse Oximetry 99 01/22/21 16:39 Procedures Laceration Repair Laceration 1: Site: face Side (If applicable): left Size (cm): 2.5 Description: stellate and irregular Depth: involves muscle layer Local Anesthetic: lidocaine 1% and with epi Amount of anesthesia used (mL): 5 Pre-repair: wound explored, irrigated extensively and deep structures intact Skin layer closed with: nylon Size (cm): 6-0 Number of sutures: 5 Technique: simple, interrupted Subcutaneous layer closed with: vicryl Size: 5-0 Number of sutures: 2 Technique: simple, interrupted Course Orders Ordered: Discontinued Medications Bacitracin (Bacitracin Oint 0.9 Gm Pckt) 1 applic TOP NOW ONE Stop: 01/22/21 20:36 Last Admin: 01/22/21 20:47 Dose: 1 applic Documented by: [email or web address] Lidocaine/Epinephrine (Lidocaine 1% W/Epi) 1 ml SUBCUT NOW ONE Stop: 01/22/21 20:12 Last Admin: 01/22/21 20:46 Dose: 1 ml Documented by: [email or web address] Vital Signs Vital signs: Vital Signs - 8 hr 01/22/21 20:43 Pulse Rate 62 Respiratory Rate 16 Blood Pressure 146/69 H Pulse Oximetry 100 MDM - Trauma Imaging Data CT scan - head: Radiologist's Impression: Perry Beckwith 80 M 1940 [address] [id number] Scan ReportSigned Patient: Perry Beckwith WMR#: [id number]: [id number]:[id number]/Sex: 80 / MDate of Service: 01/22/21Loc: EDAccession Number: [id number] Procedure: CT head/brain wo con Ordering Provider: Janine Plata D.O. PROCEDURE: CT HEAD/BRAIN WO CON INDICATIONS: trauma TECHNIQUE: Noncontrast 4.5 mm thick angled axial sections acquired from the foramen magnum to the vertex, with coronal and sagittal reformats. For radiation dose reduction, the following was used: automated exposure control, adjustment of mA and/or kV according to patient size. COMPARISON: None. FINDINGS: Image quality: Excellent. CSF spaces: Basal cisterns are patent. No extra-axial fluid collections. The ventricles are symmetric in size and shape. Brain: No intracranial bleeds or masses. There is cerebral volume loss for age, with resultant ventricular and sulcal prominence. There are periventricular and deep white matter chronic small vessel ischemic changes. There is intracranial internal carotid artery atherosclerosis. Small focal calcification noted in the right parietal sulcus consistent with prior granulomatous disease. Skull and face: Left periorbital soft tissue swelling. Sinuses: Visualized sinuses and mastoids are clear. IMPRESSION: Atrophy and chronic ischemic change without acute hemorrhage or mass effect Dictated by: Victor M Villalobos M.D. on 01/22/2021 at 16:00 Approved by: Victor M Villalobos M.D. on 01/22/2021 at 16:06 CT - cervical spine: Radiologist's Impression: [address] [id number] Scan ReportSigned Patient: Perry Beckwith WMR#: [id number]: [id number]:[id number]/Sex: 80 / MDate of Service: 01/22/21Loc: EDAccession Number: [id number] Procedure: CT cervical spine wo con Ordering Provider: Janine Plata D.O. PROCEDURE: CT CERVICAL SPINE WO CON INDICATIONS: trauma TECHNIQUE: Noncontrast 3 mm thick sections acquired from the skull base to the T4 level. Sagittal and coronal reformats were then constructed. For radiation dose reduction, the following was used: automated exposure control, adjustment of mA and/or kV according to patient size. COMPARISON: None. FINDINGS: Image quality: Excellent. Bones: No fractures or dislocations. Visualized superior ribs are intact. Disc space narrowing and hypertrophic uncovertebral joints noted in the mid cervical spine resulting in resulting in [id number] central stenosis at C4-5, C5-6 and C6-7 with right sided foraminal stenosis. Soft tissues: Prevertebral soft tissues are normal in thickness. No paravertebral hematomas. No apical pneumothoraces. Moderate left pleural effusion present. Atherosclerotic vascular calcification noted in both proximal internal carotid arteries IMPRESSION: 1. No fracture or malalignment. 2. Moderate left pleural effusion. 3. Multilevel degenerative disc disease and arthropathy with mild to moderate central and right-sided foraminal stenosis Dictated by: Victor M Villalobos M.D. on 01/22/2021 at 16:48 Approved by: Victor M Villalobos M.D. on 01/22/2021 at 16:53 Discharge Plan Departure Patient Disposition: Home Clinical Impression: Forehead laceration Qualifiers: Encounter type: initial encounter Qualified Code(s): S01.81XA - Laceration without foreign body of other part of head, initial encounter Instructions: DI for Laceration Repair, DI for Trauma Activity Restrictions/Additional Instructions: *You have been diagnosed with [fall with forehead laceration] *What to do: *Please continue to take your regular medications as directed. [ ] New medication prescriptions sent to your pharmacy: [ ] [ ] New medication written as a paper prescription [x] No new medications given Please keep the wound clean and dry to the best of your ability. Please monitor for signs of infection such as redness to the skin or increasing pain. Have the sutures removed by your doctor in about 7 days. If you are unable to get into your doctor, we would be happy to remove the sutures in that same timeframe. *If you do not have a primary care provider please contact the [facility] Resource line at [phone]. They will ask some questions about your medical history and help get you set up with a doctor in the community. *Return to Emergency Department if you should have any new, worsening or concerning symptoms, such as [fever greater than 101 F, shaking chills, worsening pain, persistent vomiting or other bothersome symptoms] Prescriptions: No Action pantoprazole 40 mg tablet,delayed release (DR/EC) 20 mg PO BID RF: 0 ASPIRIN (Aspirin EC) 81 mg PO Q DAY Qty: 0 RF: 0 clopidogrel 75 mg tablet See Rx Instructions .ROUTE .COMPLEX Qty: 90 RF: 3 fluoxetine 20 mg tablet 20 mg PO QDAY Qty: 90 RF: 3 atorvastatin 40 mg tablet 40 mg PO DAILY RF: 0 carvedilol 6.25 mg tablet 3.125 mg PO BID Qty: 60 RF: 6 Referrals: Brandyn Conklin MD [Primary Care Provider] -
[2021-01-22 20:43] VITALS: BP 146/69; PULSE 62; RESP 16; O2SAT 100
[2021-01-22] MEDS: LIDOCAINE 1% W/EPI 1 ML SUBCUT (20:46)
[2021-01-22] MEDS: BACITRACIN OINT 0.9 GM PCKT 1 APPLIC TOP (20:47)
== END 2021-01-22 20:44 | disposition home or self-care (01) ==
PROVIDERS: Emergency Provider Emergency Medicine; PCP Family Medicine
DX: S01.81XA Laceration without foreign body of other part of head, initial encounter (principal); Z79.01 Long term (current) use of anticoagulants; W19.XXXA Unspecified fall, initial encounter
CPT/HCPCS: 13131; 70450; 72125; 99284

== ENCOUNTER 2023-05-23 08:59 | Emergency (ER) | payer MEDICARE, SELFPAY ==
[2021-01-18 12:09] VITALS: BMI 21.6
[2023-05-23 09:04] VITALS: BP 122/63; PULSE 63; RESP 16; TEMP 36.4; O2SAT 99; BMI 22.8
--- NOTE | 2023-05-23 09:07 | DI.RAD.S_ITS ---
PROCEDURE: XR FINGER RT MIN 2V INDICATIONS: fall, swelling, slight deformity TECHNIQUE: AP hand, 2 views of the 5th finger(s) acquired. COMPARISON: None. FINDINGS: Bones: No fractures or dislocations. No suspicious bony lesions. 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 Soft tissues: No suspicious soft tissue calcifications. 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 No acute bony abnormality noted. Dictated by: Jeramie Herrera M.D. on 05/23/2023 at 9:53 Approved by: Jeramie Herrera M.D. on 05/23/2023 at 9:55
--- NOTE | 2023-05-23 10:00 | ED.FALL ---
HPI - Fall General Chief Complaint: Fall Stated Complaint: poss RT hand middle finger broke Time Seen by Provider: 05/23/23 09:02 History of Present Illness HPI Narrative: 80-year-old male presents for finger injury that occurred 2 days prior. Patient was walking down the stairs when he misstepped and landed on his R hand. He jammed his pinky finger and it is painful and swollen with decreased range of motion. He is here to see if it is fractured. Related Data Home Medications Medication Instructions Recorded Confirmed atorvastatin 40 mg tablet 40 mg PO DAILY 07/28/18 11/13/22 cholecalciferol (vitamin D3) 25 25 mcg PO DAILY 04/04/21 11/13/22 mcg (1,000 unit) tablet (Vitamin D3) vitamin A83-dzutmnnce factor 110 1 cap DAILY 04/04/21 11/13/22 mg-0.5 mg capsule aspirin 81 mg tablet,delayed 81 mg PO DAILY 02/13/23 02/13/23 release pyridoxine (vitamin B6) 25 mg 25 mg PO DAILY 02/13/23 02/13/23 tablet Previous Rx's Medication Instructions Recorded fluoxetine 20 mg tablet See Rx Instructions .Route 08/06/22 .COMPLEX #90 tabs clopidogrel 75 mg tablet See Rx Instructions .Route 08/26/22 .COMPLEX #90 tabs carvedilol 6.25 mg tablet See Rx Instructions .Route 12/23/22 .COMPLEX #90 tabs Allergies Allergy/AdvReac Type Severity Reaction Status Date / Time No Known Drug Allergies Allergy Verified 02/13/23 11:42 Review of Systems Review of Systems Narrative: Negative except as noted above Patient History Medical History Congestive heart failure (12/01/14) Coronary artery disease (12/01/14) Essential hypertension (12/11/10) Status post coronary angioplasty (12/01/14) Vitamin B12 deficiency Surgical History History of cataract removal with insertion of prosthetic lens (02/20/16) History of cataract removal with insertion of prosthetic lens (03/05/16) History of knee replacement History of tonsillectomy Status post arthroscopy Stented coronary artery Social History marital status: number of children: 2 household members: spouse lives independently: Yes caregiver/support person: No housing: house pets and animals: Yes education level: college occupational status: previously employed current occupational exposures/hazards: No 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 leisure activities: sports and exercise Smoking Status: Former smoker alcohol intake: former substance use type: marijuana Smoking Status: Former smoker alcohol intake frequency: holidays/special occasions only Substance Use Type: does not use Exam Initial Vital Signs Initial Vital Signs: Vital Signs Temperature 97.5 F L 05/23/23 09:04 Pulse Rate 63 05/23/23 09:04 Respiratory Rate 16 05/23/23 09:04 Blood Pressure 122/63 05/23/23 09:04 Pulse Oximetry 99 05/23/23 09:04 Oxygen Delivery Method Room Air 05/23/23 09:04 Const: Awake, alert, no acute distress, nontoxic appearing Eyes: PERRL, EOMI, conjunctiva normal MSK: mallet deformity R pinky finger, decreased ROM due to pain. No warmth Skin: Warm, Dry, 2cm superficial abrasion over R pinky finger Neuro: AO x3, CN II-XII grossly intact, moves all extremities Psych: affect normal, mood normal, not suicidal, not homicidal Course Course Course Narrative: Pinky injury after trip and fall. XR negative for acute findings. Placed in ricardo tape and splint. CADEN advised. Orders Ordered: ED Orders 05/23/23 09:07 XR finger RT min 2V Stat Vital Signs Vital signs: Vital Signs - 8 hr 05/23/23 09:04 05/23/23 10:10 Temperature 97.5 F L Pulse Rate 63 88 Respiratory Rate 16 16 Blood Pressure 122/63 124/78 Pulse Oximetry 99 99 Oxygen Delivery Method Room Air Room Air Discharge Plan Departure Patient Disposition: Home Clinical Impression: Mallet deformity of little finger Instructions: DI for Mallet Finger, How to Ricardo Tape Activity Restrictions/Additional Instructions: TAKE TYLENOL AND APPLY ICE NEEDED FOR PAIN/SWELLING. KEEP ELEVATED WHEN AT REST. WEAR THE SPLINT TO KEEP YOUR PINKY FINGER STRAIGHT. FOLLOW UP WITH YOUR PRIMARY CARE DOCTOR Prescriptions: No Action aspirin 81 mg tablet,delayed release (DR/EC) 81 mg PO DAILY pyridoxine (vitamin B6) 25 mg tablet 25 mg PO DAILY fluoxetine 20 mg tablet See Rx Instructions .ROUTE .COMPLEX Qty: 90 3RF Dose Instruction: TAKE ONE TABLET BY MOUTH ONE TIME DAILY Rx Instructions: TAKE ONE TABLET BY MOUTH ONE TIME DAILY clopidogrel 75 mg tablet See Rx Instructions .ROUTE .COMPLEX Qty: 90 2RF Dose Instruction: TAKE ONE TABLET BY MOUTH ONE TIME DAILY Rx Instructions: TAKE ONE TABLET BY MOUTH ONE TIME DAILY carvedilol 6.25 mg tablet See Rx Instructions .ROUTE .COMPLEX Qty: 90 3RF Dose Instruction: TAKE 1/2 TABLET BY MOUTH TWICE DAILY Rx Instructions: TAKE 1/2 TABLET BY MOUTH TWICE DAILY atorvastatin 40 mg tablet 40 mg PO DAILY vitamin F63-hopfajuse factor 110-0.5 mg Capsule 1 cap DAILY cholecalciferol (vitamin D3) [Vitamin D3] 25 mcg (1,000 unit) Tablet 25 mcg PO DAILY Referrals: Brandyn Conklin MD [Primary Care Provider] - Stand Alone Forms: Patient Portal/API
[2023-05-23 10:10] VITALS: BP 124/78; PULSE 88; RESP 16; O2SAT 99
== END 2023-05-23 10:10 | disposition home or self-care (01) ==
PROVIDERS: Emergency Provider Emergency Medicine; PCP Family Medicine
DX: M20.011 Mallet finger of right finger(s) (principal)
CPT/HCPCS: 73140; 99283

== ENCOUNTER → 2023-12-25 09:49 | Outpatient (CLI) | payer MEDICARE, SELFPAY ==
[2021-01-18 12:09] VITALS: BMI 21.6
[2023-12-25 10:54] LABS: Add Manual Diff / Slide Review NO; Basophils Absolute Auto 0 /uL (0-100); Basophils Percent Auto 0.6 % (0-2); Eosinophils Absolute Auto 200 /uL (0-450); Eosinophils Percent Auto 3.2 % (2-4); Hematocrit 40.2 % (41-53); Hemoglobin 13.5 g/dL (13.5-17.5); Lymphocytes Absolute Auto 1800 /uL (1100-4500); Lymphocytes Percent Auto 25.4 % (25-40); Mean Corpuscular HGB Conc 33.7 % (30-36); Mean Corpuscular Hemoglobin 32.1 PG (26-34); Mean Corpuscular Volume 95.4 fL (80-100); Monocytes Absolute Auto 600 /uL (0-900); Monocytes Percent Auto 9.2 % (3-14); Neutrophils Absolute Auto 4300 /uL (1500-7000); Neutrophils Percent Auto 61.6 % (50-75); Platelet Count 146 X10^3/uL (150-400); Red Blood Cell Count 4.22 X10^6/uL (4.5-5.9); Red Cell Distribution Width 13.2 % (11.6-14.8)
[2023-12-25 11:17] LABS: Alanine Aminotransferase 26 IU/L (<50); Albumin 3.7 g/dL (3.5-5.0); Albumin Globulin Ratio 1.7 (1.0-2.8); Alkaline Phosphatase 74 U/L (38-126); Aspartate Aminotransferase 35 IU/L (17-59); BUN Creatinine Ratio 19.8 (6-22); Bilirubin Total 0.8 mg/dL (0.2-1.3); Blood Urea Nitrogen 21 mg/dL (9-20); Calcium 8.5 mg/dL (8.4-10.2); Carbon Dioxide 25 mmol/L (22-32); Chloride 107 mmol/L (98-107); Estimated Glomerular Filt Rate > 60 mL/min (>60); Globulin 2.2 g/dL (1.7-4.1); Glucose 96 mg/dL (80-110); HEMOLYSIS < 15 (0-50); Potassium 4.8 mmol/L (3.4-5.1); Sodium 138 mmol/L (137-145); Total Protein 5.9 g/dL (6.3-8.2)
[2023-12-25 11:45] LABS: TSH w/ Reflex to FT4 3.18 uIU/mL (0.47-4.68)
== END ==
PROVIDERS: PCP Family Medicine; Referring Provider Family Medicine; Visit Provider Family Medicine
DX: K83.8 Other specified diseases of biliary tract (principal); R74.8 Abnormal levels of other serum enzymes
CPT/HCPCS: 36415; 80053; 84443; 85025

== ENCOUNTER → 2024-05-28 10:30 | Outpatient (CLI) | payer MEDICARE, SELFPAY ==
[2021-01-18 12:09] VITALS: BMI 21.6
[2024-05-28 12:24] LABS: Alanine Aminotransferase 71 IU/L (<50); Albumin 3.7 g/dL (3.5-5.0); Albumin Globulin Ratio 1.6 (1.0-2.8); Alkaline Phosphatase 135 U/L (38-126); Aspartate Aminotransferase 50 IU/L (17-59); Bilirubin Total 0.7 mg/dL (0.2-1.3); Bilirubin Unconjugated 0.4 mg/dL (0.0-1.1); Globulin 2.3 g/dL (1.7-4.1); HEMOLYSIS < 15 (0-50)
== END ==
PROVIDERS: PCP Family Medicine; Referring Provider Internal Medicine Gastroenterology; Visit Provider Internal Medicine Gastroenterology
DX: C22.1 Intrahepatic bile duct carcinoma (principal)
CPT/HCPCS: 36415; 80076

== ENCOUNTER → 2024-07-08 11:08 | Outpatient (CLI) | payer MEDICARE, SELFPAY ==
[2021-01-18 12:09] VITALS: BMI 21.6
[2024-07-08 12:48] LABS: Alanine Aminotransferase 35 IU/L (<50); Albumin 3.7 g/dL (3.5-5.0); Albumin Globulin Ratio 1.6 (1.0-2.8); Alkaline Phosphatase 122 U/L (38-126); Aspartate Aminotransferase 37 IU/L (17-59); Bilirubin Total 0.7 mg/dL (0.2-1.3); Bilirubin Unconjugated 0.5 mg/dL (0.0-1.1); Globulin 2.3 g/dL (1.7-4.1); HEMOLYSIS < 15 (0-50)
== END ==
LOC: LAB 11:09
PROVIDERS: PCP Family Medicine; Referring Provider Internal Medicine Gastroenterology; Visit Provider Internal Medicine Gastroenterology
DX: C22.1 Intrahepatic bile duct carcinoma (principal)
CPT/HCPCS: 36415; 80076

== ENCOUNTER → 2024-11-16 12:35 | Outpatient (CLI) | payer MEDICARE, SELFPAY ==
[2021-01-18 12:09] VITALS: BMI 21.6
[2024-11-16 13:12] LABS: Add Manual Diff / Slide Review NO; Basophils Absolute Auto 0 /uL (0-100); Basophils Percent Auto 0.4 % (0-2); Eosinophils Absolute Auto 0 /uL (0-450); Eosinophils Percent Auto 0.1 % (2-4); Hematocrit 42.6 % (41-53); Hemoglobin 14.1 g/dL (13.5-17.5); Lymphocytes Absolute Auto 600 /uL (1100-4500); Lymphocytes Percent Auto 4.8 % (25-40); Mean Corpuscular Hemoglobin 31.8 PG (26-34); Mean Corpuscular Volume 96.3 fL (80-100); Monocytes Absolute Auto 900 /uL (0-900); Neutrophils Absolute Auto 11000 /uL (1500-7000); Neutrophils Percent Auto 87.7 % (50-75); Platelet Count 136 X10^3/uL (150-400); Red Blood Cell Count 4.42 X10^6/uL (4.5-5.9); Red Cell Distribution Width 14.5 % (11.6-14.8); White Blood Cell Count 12.6 X10^3/uL (4.5-11.0)
[2024-11-16 13:33] LABS: Alanine Aminotransferase 50 IU/L (<50); Albumin 4.2 g/dL (3.5-5.0); Albumin Globulin Ratio 1.6 (1.0-2.8); Alkaline Phosphatase 99 U/L (38-126); Aspartate Aminotransferase 91 IU/L (17-59); BUN Creatinine Ratio 19.8 (6-22); Bilirubin Total 1.4 mg/dL (0.2-1.3); Blood Urea Nitrogen 20 mg/dL (9-20); Carbon Dioxide 20 mmol/L (22-32); Chloride 106 mmol/L (98-107); Cholesterol 144 mg/dL (140-199); Estimated Glomerular Filt Rate > 60 mL/min (>60); Globulin 2.7 g/dL (1.7-4.1); Glucose 136 mg/dL (70-99); HDL Cholesterol 99 mg/dL (40-60); HEMOLYSIS 18 (0-50); LDL Cholesterol Calculated 33 mg/dL (<100); Potassium 4.1 mmol/L (3.4-5.1); Sodium 134 mmol/L (137-145); Total Protein 6.9 g/dL (6.3-8.2); Triglycerides 60 mg/dL (35-150)
[2024-11-16 14:05] LABS: Prostate Specific Antigen < 0.064 ng/mL (0.10-4.00)
[2024-11-16 14:06] LABS: TSH w/ Reflex to FT4 2.22 uIU/mL (0.47-4.68)
== END ==
PROVIDERS: PCP Family Medicine; Referring Provider Family Medicine; Visit Provider Family Medicine
DX: R74.8 Abnormal levels of other serum enzymes (principal); K83.8 Other specified diseases of biliary tract; C61 Malignant neoplasm of prostate; Z12.5 Encounter for screening for malignant neoplasm of prostate; I95.9 Hypotension, unspecified
CPT/HCPCS: 36415; 80053; 80061; 84153; 84443; 85025

== ENCOUNTER → 2024-11-18 07:16 | Outpatient (CLI) | payer MEDICARE, SELFPAY ==
[2021-01-18 12:09] VITALS: BMI 21.6
--- NOTE | 2024-11-18 07:17 | DI.US.S_ITS ---
PROCEDURE: US ABDOMEN COMPLETE INDICATIONS: F/U biliary stent and elevated liver enzymes TECHNIQUE: Real-time scanning was performed of the abdominal and retroperitoneal organs, with image documentation. COMPARISON: [facility], , US ABDOMEN LIMITED, 09/21/2020, 8:53. FINDINGS: Liver: The liver demonstrates normal size. The liver demonstrates generalized moderately increased echogenicity. This decreases ultrasound sensitivity for detection of hepatic masses. The main portal vein demonstrates normal size and demonstrates normal appearing, hepatopetal flow. Gallbladder: Color Doppler was also utilized. Biliary ducts: Intrahepatic bile ducts are non-dilated. Extrahepatic bile duct caliber measures 5-6 mm. Normal is 6-7 mm or less in diameter, or 10 mm or less post-cholecystectomy. There is a common bile duct stent seen. Pancreas: Visualized portions of the pancreas are sonographically normal. Spleen: Spleen is normal in size and homogeneous in echotexture. Kidneys: Kidneys are normal in size and echotexture. Right kidney measures 9.1 cm long; left kidney measures 9.1 cm long. No hydronephrosis or nephrolithiasis. No solid masses. Within the right kidney, there is a simple appearing cyst seen that measures up to 2 cm. Aorta: Visualized aorta is normal in caliber at less than 3 cm. Iliacs: Proximal common iliac arteries are normal in caliber at less than 2.5 cm. IVC: Intrahepatic inferior vena cava is patent. Miscellaneous: No free abdominal fluid. This study is limited by body habitus. IMPRESSION: A biliary stent is seen. No biliary dilatation is seen. The liver demonstrates increased echogenicity. This finding is nonspecific, yet it is most commonly attributed to fatty infiltration. The gallbladder demonstrates a normal sonographic appearance. Dictated by: Antony Skinner M.D. on 11/18/2024 at 12:14 Approved by: Antony Skinner M.D. on 11/18/2024 at 12:15
== END ==
LOC: US 07:17
PROVIDERS: PCP Family Medicine; Referring Provider Family Medicine; Visit Provider Family Medicine
DX: K83.8 Other specified diseases of biliary tract (principal); R74.8 Abnormal levels of other serum enzymes; Z98.890 Other specified postprocedural states
CPT/HCPCS: 76700